=== PATIENT | male | born 1965 | race Caucasian/White ===

== ENCOUNTER 2018-08-11 15:40 | Outpatient (RCR) | payer BC ==
[2018-08-05 11:18] VITALS: BP 143/95
[2018-08-05] MEDS: cefTRIAXone 2 GM/NS 50 ML IVPB IV SCH ×2 (11:43)
[2018-08-06 13:14] VITALS: BP 131/104
[2018-08-06] MEDS: cefTRIAXone 2 GM/NS 50 ML IVPB IV SCH ×2 (13:14)
[2018-08-07 12:50] VITALS: BP 118/92
[2018-08-07] MEDS: cefTRIAXone 2 GM/NS 50 ML IVPB IV SCH ×2 (12:58)
[2018-08-08] MEDS: cefTRIAXone FOR IV USE 1,000 MG in NS (IVPB) 50 ML IV SCH (09:45)
[2018-08-08 10:16] VITALS: BP 124/90
[2018-08-09] MEDS: cefTRIAXone FOR IV USE 1,000 MG in NS (IVPB) 50 ML IV SCH (09:31)
[2018-08-09 09:33] VITALS: BP 125/97
[2018-08-10] MEDS: cefTRIAXone FOR IV USE 1,000 MG in NS (IVPB) 50 ML IV SCH (13:01)
[2018-08-10 13:06] VITALS: BP 117/77
[~2018-08-11] VITALS: Ht 182.9 cm; Wt 92.1 kg
[~2018-08-11 15:40] MED LIST: LISI-552 PO; NS (IVPB) 50 ML ONE; cefTRIAXone 2 GM/20 ML for IV (ROCEPHIN) ONE
[2018-08-11] MEDS: cefTRIAXone FOR IV USE 1,000 MG in NS (IVPB) 50 ML IV SCH (15:50)
[2018-08-11 16:03] LABS: BASOPHILS # (AUTO) 0.1 10^3/uL (0.0-0.1); BASOPHILS % (AUTO) 1 % (0-10); EOSINOPHILS # (AUTO) 0.2 10^3/uL (0.0-0.3); EOSINOPHILS % (AUTO) 3 % (0-10); HEMATOCRIT 38 % (40-54); HEMOGLOBIN 12.8 G/DL (13.3-17.7); LYMPHOCYTES # (AUTO) 3.3 X 10^3 (1.0-4.0); LYMPHOCYTES % (AUTO) 41 % (12-44); MEAN CORPUSCULAR HEMOGLOBIN 29 PG (25-34); MEAN CORPUSCULAR HGB CONC 34 G/DL (32-36); MEAN CORPUSCULAR VOLUME 88 FL (80-99); MEAN PLATELET VOLUME 10.3 FL (7.4-10.4); MONOCYTES % (AUTO) 12 % (0-12); NEUTROPHILS # (AUTO) 3.5 X 10^3 (1.8-7.8); NEUTROPHILS % (AUTO) 43 % (42-75); PLATELET COUNT 279 10^3/uL (130-400); RED BLOOD COUNT 4.36 10^6/uL (4.35-5.85); RED CELL DISTRIBUTION WIDTH 12.9 % (10.0-14.5); WHITE BLOOD COUNT 8.1 10^3/uL (4.3-11.0)
[2018-08-11 16:20] LABS: ALANINE AMINOTRANSFERASE 97 U/L (0-55); ALBUMIN 4.1 GM/DL (3.2-4.5); ALKALINE PHOSPHATASE 52 U/L (40-136); BILIRUBIN,TOTAL 0.3 MG/DL (0.1-1.0); BUN/CREATININE RATIO 10; CARBON DIOXIDE 26 MMOL/L (21-32); CHLORIDE 104 MMOL/L (98-107); CREATININE SERUM 0.93 MG/DL (0.60-1.30); GFR ESTIMATED > 60; GLUCOSE 85 MG/DL (70-105); POTASSIUM 4.2 MMOL/L (3.6-5.0); SODIUM 137 MMOL/L (135-145); TOTAL PROTEIN 6.6 GM/DL (6.4-8.2)
[2018-08-11 16:28] VITALS: BP 120/92
== END 2018-08-11 16:28 | disposition home or self-care (01) ==
LOC: SDC 15:40
PROVIDERS: ATTEND Nurse Practitioner Family
DX: K57.20 Diverticulitis of large intestine with perforation and abscess without bleeding (principal)
CPT/HCPCS: 36415; 76937; 80053; 85025; 96365

== ENCOUNTER 2018-08-18 12:03 | Outpatient (CLI) | payer BC ==
[~2018-08-18] VITALS: Ht 182.9 cm; Wt 92.1 kg
[~2018-08-18 12:03] MED LIST changes: -NS (IVPB) 50 ML ONE; -cefTRIAXone 2 GM/20 ML for IV (ROCEPHIN) ONE
[2018-08-18] MEDS ORDERED: NS IV 1000 ML 1,000 ML IV ONE (12:30)
[2018-08-18 13:46] VITALS: BP 124/89
--- NOTE | 2018-08-18 14:18 | Diagnostic Imaging Report ---
PROCEDURE: CT abdomen and pelvis without contrast. TECHNIQUE: Multiple contiguous axial images were obtained through the abdomen and pelvis without the use of intravenous contrast. INDICATION: Left lower quadrant pain. COMPARISON: There are no prior studies available for comparison. FINDINGS: There are innumerable diverticula involving the sigmoid and distal descending colon. There is slight distortion of the pericolonic fat about the sigmoid colon. This finding could be related to mild scar formation from prior episodes of diverticulitis. The possibility that there is an element of acute diverticulitis present cannot be entirely excluded however. There is no diverticular mass or abscess visualized. There is no sign of a microperforation either. The urinary bladder and prostate gland are grossly unremarkable. The appendix was visualized and is not abnormally thickened. The liver is homogeneous and does not appear to be enlarged. The gallbladder, the spleen, the pancreas, the adrenals, the kidneys, the aorta and the inferior vena cava show no sign of an acute abnormality. There is a 4.1 cm rounded area of low density along the superior pole of the left kidney. There is also a much smaller 1 cm rounded area of low density in the inferior pole and a 2.3 cm rounded area of low density in the midportion of the left kidney. I suspect that these findings are due to cyst formation. Ultrasound would be recommended to confirm this however. The stomach is partially filled with gas and fluid and consequently difficult to assess. The lung bases are clear. The bone windows show no evidence for a fracture or for a destructive lesion. IMPRESSION: 1. There are innumerable diverticula in the sigmoid colon. There is also slight distortion of the pericolonic fat in this area. Whether this finding is secondary to chronic inflammation or to mild acute diverticulitis is not certain. Clinical followup is recommended. 2. There is no diverticular mass, abscess or perforation. There is no other acute abnormality of the abdomen or pelvis identified. 3. The areas of low density associated with the left kidney are most likely cysts. Ultrasound would be recommended to confirm this. Dictated by: Dictated on workstation # [id number]
== END 2018-08-18 13:46 | disposition home or self-care (01) ==
LOC: SDC 12:03
PROVIDERS: ATTEND Nurse Practitioner Family
DX: E86.1 Hypovolemia (principal); R19.7 Diarrhea, unspecified; E86.0 Dehydration; K57.32 Diverticulitis of large intestine without perforation or abscess without bleeding
CPT/HCPCS: 74176; 96360

== ENCOUNTER 2018-08-18 16:15 | Inpatient (IN) | payer BC ==
[~2018-08-18] VITALS: Ht 182.9 cm; Wt 90.7 kg
[2018-08-18 16:10] VITALS: BP 148/97
--- NOTE | 2018-08-18 16:15 | NUR ---
TAQUERIASandra THURMAN admitted to room 422-1, with an admitting diagnosis of SIGMOID DIVERTICULOSIS, on 08/18/[address] STORM'S OFFICE via W/C, accompanied by S/O.TAQUERIA THURMAN introduced to surroundings, call light, bed controls, phone, TV, temperature control, lights, meal times, smoking policy, visitor policy, side rail policy, bathrooms and showers. Patient Rights given to patient in the handbook.TAQUERIA THURMAN verbalizes understanding that [facility] is not responsible for the loss or damage to any personal effects or valuables that are kept in the patients posession during their hospitalization. The following Patient Care Plans were discussed with the PT: Discharge Planning, PAIN CONTROL,IV THERAPY AND ANTIBIOTICS, and TESTS AND PROCEDURES. TAQUERAI THURMAN verbalizes understanding of Interdisciplinary Patient Education. Patient and/or family were informed about the Rapid Response Team and its purpose.
--- NOTE | 2018-08-18 16:47 | HISTORY AND PHYSICAL ---
DATE OF SERVICE: ATTENDING PRIMARY CARE PHYSICIAN: Dr. Montoya. ADMITTING PHYSICIAN: Beau Storm MD HISTORY OF PRESENT ILLNESS: The patient is a 53-year-old male who was recently referred to the office for abdominal pain. This gentleman reports that for the past 3 weeks he has had pain in the left lower abdominal quadrant. He initially presented at [facility] where he underwent a CT scan and found to have a small diverticular abscess as well as diverticulitis. The abscess was approximately 2 cm in size. He was treated with antibiotics. He reports that since that time he has had intermittent episodes of pain; however, in the past 48 hours, he has felt fevers and chills. He also feels weak. Upon examination, he does have pain in the left lower abdominal quadrant. A CT scan was performed today, which did show signs of sigmoid diverticulitis; however, no abscess at this time. He states that he does feel nauseous as well and cannot keep adequate amounts of fluids down. He has also not had a colonoscopy up to this point in his life. He reports that he does have a history of gastroesophageal reflux disease and peptic ulcer disease and these symptoms have worsened in the past several weeks as well. He also reports that he has noticed dark diarrhea. PAST MEDICAL HISTORY: Hypertension, diverticulitis and diverticulosis, insomnia. PAST SURGICAL HISTORY: Right shoulder arthroscopy, left knee arthroscopy. ALLERGIES: No known drug allergies. MEDICATIONS: Lisinopril 20 mg daily. SOCIAL HISTORY: Previous smoker, quit in 1994, 10 pack years. Does drink several beers on the weekends. FAMILY HISTORY: Sister, lung cancer, mother, father, sister, brother, diabetes and hypertension. REVIEW OF SYSTEMS: Well-nourished male in no acute distress. He is not experiencing any shortness of breath or difficulty breathing. No chest pain, palpitations, diaphoresis. No intermittent episodes of nausea, no vomiting. He does not have any appetite. He also has diarrhea, which had been darker in color. No red blood per rectum. He is currently having chills. No recent inadvertent weight loss. All other review of systems negative. PHYSICAL EXAMINATION: VITAL SIGNS: Blood pressure 100/50, current weight 200 pounds at 6 feet 0 inches. CHEST: Clear. Good breath sounds bilaterally. HEART: Regular, no murmurs. EXTREMITIES: No lower extremity edema, negative Homans sign. HEENT: No scleral icterus. NECK: No cervical lymphadenopathy. ABDOMEN: Soft, nontender, nondistended. SKIN: Warm, dry. ASSESSMENT AND PLAN: A 53-year-old male with an acute sigmoid diverticulitis. He is currently dehydrated and feeling chills and cannot keep adequate fluids down and we will admit him for observation. We will start IV fluids, IV antibiotics as well as a clear liquid diet. We will also get followup labs in the morning and clinical examination. He has also not had a colonoscopy at this point in his life and does have worsening episodes of gastroesophageal reflux disease and peptic ulcer disease in the past 4 to 6 week. We will proceed with outpatient EGD and colonoscopy. Job ID: [id number] DocumentID: [id number] Dictated Date: 08/18/2018 16:05:04 Photo Editor Date: 08/18/2018 16:46:45 Dictated By: BEAU STORM MD MTDD
[2018-08-18] MEDS ORDERED: ONDANSETRON 4 MG/2 ML (SDV) Z0FRAN IV PRN (17:00)
[2018-08-18] MEDS: LACTATED RINGERS 1,000 ML IV SCH ×2 (17:00→23:49)
[2018-08-18] MEDS: metroNIDAZOLE 500MG/100ML IVPB 100 ML IV SCH (17:00)
[2018-08-18] MEDS ORDERED: CATHETER FLUSH 10 ML SYR IV PRN (17:00)
[2018-08-18] MEDS ORDERED: fentaNYL INJECTION 100 MCG/2 ML AMP IV PRN (17:00)
[2018-08-18] MEDS ORDERED: HYDROcodone/APAP 7.5 MG/325 MG (LORTAB, LORCET PLUS) TABLET PO PRN (17:00)
[2018-08-18] MEDS: CIPROFLOXACIN IV 400MG/200ML 200 ML IV SCH (17:00)
[2018-08-18] MEDS: PANTOPRAZOLE 40 MG (PROTONIX) VIAL IV SCH (17:01)
[2018-08-18] MEDS: ACETAMINOPHEN 325 MG TABLET PO PRN (17:01)
[2018-08-18] MEDS ORDERED: FLU QUADRIvalent (5+ YOA) 2018-2019 (AFLURIA) 0.5 ML IM ONE (17:15)
[2018-08-18] MEDS: IBUPROFEN 600 MG (MOTRIN) TAB PO PRN (18:38)
[2018-08-18 20:13] VITALS: BP 126/83
[2018-08-19 00:02] VITALS: BP 119/83
[2018-08-19] MEDS: LACTATED RINGERS 1,000 ML IV SCH ×3 (00:55→17:08)
[2018-08-19] MEDS: CIPROFLOXACIN IV 400MG/200ML 200 ML IV SCH (04:26)
[2018-08-19 04:43] LABS: HEMOGLOBIN 11.8 G/DL (13.3-17.7); MEAN PLATELET VOLUME 10.7 FL (7.4-10.4); RED CELL DISTRIBUTION WIDTH 13.3 % (10.0-14.5); WHITE BLOOD COUNT 12.2 10^3/uL (4.3-11.0)
[2018-08-19 04:47] VITALS: BP 112/75
[2018-08-19 05:11] LABS: BUN/CREATININE RATIO 9; CALCIUM 8.6 MG/DL (8.5-10.1); CARBON DIOXIDE 22 MMOL/L (21-32); CHLORIDE 107 MMOL/L (98-107); CREATININE SERUM 0.77 MG/DL (0.60-1.30); GFR ESTIMATED > 60; GLUCOSE 101 MG/DL (70-105); POTASSIUM 3.6 MMOL/L (3.6-5.0); SODIUM 136 MMOL/L (135-145)
[2018-08-19] MEDS: metroNIDAZOLE 500MG/100ML IVPB 100 ML IV SCH (06:50)
[2018-08-19 08:00] VITALS: BP 127/81
[2018-08-19] MEDS: PANTOPRAZOLE 40 MG (PROTONIX) VIAL IV SCH (08:09)
[2018-08-19] MEDS: ACETAMINOPHEN 325 MG TABLET PO PRN ×3 (08:09→20:50)
--- NOTE | 2018-08-19 08:39 | NUR ---
SPOKE WITH THE PATIENT ABOUT HIS MEDICATIONS. HE STATES THE ONLY THING HE IS CURRENTLY TAKING IS HIS BLOOD PRESSURE MEDICATION. THE EXT MED HX SHOWS A FEW SHORT TERM MEDICATIONS HAVING BEEN FILLED RECENTLY, HE STATES THESE ARE ALL COMPLETED. IN ADDITION TO WHAT IS SHOWN ON THE EXT MED HX RAHEEM FILLED LISINOPRIL 20MG DAILY 08-03-18.
--- NOTE | 2018-08-19 13:42 | Consultation-Hospitalist ---
HPI History of Present Illness: HPI/Chief Complaint Pt is a 53yoCM with HTN and recent diagnosis of diverticulitis who was admitted to the surgery service for failed outpatient management of diverticulitis. I am consulted for medical management. He states that his only chronic medical problem is his HTN. He was diagnosed with diverticulitis 3 weeks ago at outside hospital and was treated with oral abx. He saw his PCP who arranged for daily IV abx as an outpatient as well. He completed this course roughly 1 week ago and did well until a few days ago when he developed fevers and chills. He is also having profuse diarrhea. He was direct admitted. Source: patient Exam Limitations: no limitations Date Seen 08/19/18 Attending Physician Kari Cook MD PCP Kip Montoya MD Referring Physician Date of Admission Aug 18, 2018 at 16:28 Home Medications & Allergies Home Medications Reviewed patient Home Medication Reconciliation performed by pharmacy medication reconciliations on call pharmacy technician and/or nursing. Patients Allergies have been reviewed. Allergies Allergies Coded Allergies No Known Drug Allergies (Unverified08/05/18) Past Pwglmit-Tukhao-Btgdds Hx Past Med/Social Hx: Reviewed Nursing Past Med/Soc Hx Patient Social History Marrital Status: Employed/Student: employed Alcohol Use: Regular Use Alcohol Beverage of Choice: Beer Recreational Drug Use: No Physical Abuse Screen: No Sexual Abuse: No Recent Foreign Travel: No Contact w/other who traveled: No Recent Infectious Disease Expo: No Seasonal Allergies Seasonal Allergies: No Past Medical History Cardiac: Hypertension Gastrointestinal: Gastroesophageal Reflux, Chronic Diarrhea Musculoskeletal: Chronic Back Pain History of Blood Disorders: No Family History Reviewed Nursing Family Hx Cardiovascular disease Diabetes mellitus 19 FATHER 19 MOTHER G8 BROTHER G8 SISTER Hypertension 19 FATHER 19 MOTHER Review of Systems Constitutional: chills, fever Gastrointestinal: see HPI, diarrhea All Other Systems Reviewed Negative Unless Noted: Yes (Negative excepted noted.) Physical Exam Physical Exam Vital Signs Vital Signs - First Documented 08/18/18 16:10 Temp 100.0 Pulse 107 Resp 22 B/P (MAP) 148/97 (114) Pulse Ox 98 O2 Delivery Room Air Capillary Refill : Height, Weight, BMI Height: 6'0.00" Weight: 200lbs. 0.0oz. [id number]; 27.1 BMI Method: General Appearance: No Apparent Distress, WD/WN HEENT: PERRL/EOMI, Moist Mucous Membranes Neck: Non Tender, Supple Respiratory: Lungs Clear, No Respiratory Distress Cardiovascular: Regular Rate, Rhythm, No Murmur Gastrointestinal: Normal Bowel Sounds, Non Tender, Soft Extremity: Normal Capillary Refill, No Calf Tenderness Neurologic/Psychiatric: Alert, Oriented x3, Normal Mood/Affect Skin: Normal Color, Warm/Dry Results Results/Procedures Labs Laboratory Tests 08/19/18 04:30 Patient resulted labs reviewed. Imaging: Reviewed Imaging Report Assessment/Plan Assessment and Plan Assess & Plan/Chief Complaint Diverticulitis Diagnosis/Problems Diagnosis/Problems (1) Diverticulitis Status: Acute Assessment & Plan: Continue current abx Management per surgery Will check c diff given diarrhea (2) HTN (hypertension) Status: Chronic Assessment & Plan: Well controlled Trend Qualifiers: Hypertension type: essential hypertension Qualified Codes: I10 - Essential (primary) hypertension Clinical Quality Measures DVT/VTE Risk/Contraindication: Risk Factor Score Per Nursin RFS Level Per Nursing on Admit: 1=Low/No VTE PPX MARIAN HOLLAND MD Aug 19, 2018 13:42
--- NOTE | 2018-08-19 14:02 | Progress Note (SOAP) ---
Subjective Date Seen by a Provider: Aug 19, 2018 Time Seen by a Provider: 14:00 Subjective/Events-last exam doing better today. still has fever/chills however improved with ibuprofen. minimal abd pain. tolerating clears. wbc 12 Objective Exam Vital Signs Date Time Temp Pulse Resp B/P (MAP) Pulse Ox O2 Delivery O2 Flow Rate FiO2 08/19/18 09:00 98 Room Air 08/19/18 08:00 101.7 86 20 127/81 (96) 96 Room Air 08/19/18 04:47 99.2 97 18 112/75 (87) 93 Room Air 08/19/18 00:02 99.3 87 20 119/83 (95) 98 Room Air 08/18/18 21:00 Room Air 08/18/18 20:13 100.7 99 18 126/83 (97) 95 Room Air 08/18/18 17:38 Room Air 08/18/18 17:01 100.0 08/18/18 16:10 100.0 107 22 148/97 (114) 98 Room Air I & O 08/19/18 07:00 Intake Total 1590 ml Output Total 2800 ml Balance -1210 ml Capillary Refill : General Appearance: No Apparent Distress HEENT: PERRL/EOMI Neck: Full Range of Motion Respiratory: Chest Non Tender, Lungs Clear, Normal Breath Sounds Cardiovascular: Regular Rate, Rhythm Gastrointestinal: normal bowel sounds, soft, tenderness Extremity: Normal Capillary Refill Neurologic/Psychiatric: Alert, Oriented x3 Skin: Normal Color Lymphatic: No Adenopathy Results Lab Laboratory Tests 08/19/18 04:30: White Blood Count 12.2H, Red Blood Count 3.95L, Hemoglobin 11.8L, Hematocrit 35L , Mean Corpuscular Volume 88, Mean Corpuscular Hemoglobin 30, Mean Corpuscular Hemoglobin Concent 34, Red Cell Distribution Width 13.3, Platelet Count 228, Mean Platelet Volume 10.7H, Sodium Level 136, Potassium Level 3.6, Chloride Level 107, Carbon Dioxide Level 22, Anion Gap 7, Blood Urea Nitrogen 7, Creatinine 0.77, Estimat Glomerular Filtration Rate > 60, BUN/Creatinine Ratio 9 , Glucose Level 101, Calcium Level 8.6 Assessment/Plan Assessment/Plan Assess & Plan/Chief Complaint sigmoid diverticulitis. no abscess on recent CT and slightly improved since last CT earlier this month. still fever but improved. will advance to dys3 diet. Clinical Quality Measures DVT/VTE Risk/Contraindication: Risk Factor Score Per Nursin RFS Level Per Nursing on Admit: 1=Low/No VTE PPX BEAU STORM MD Aug 19, 2018 14:02
--- NOTE | 2018-08-19 14:22 | NUR ---
DR STORM HERE, ORDERED TO ADVANCE DIET, INSTRUCTED TO WALK IN HALLS, CONTINUE TO HAVE DIARRHEA, INSTRUCTED ON NEED FOR STOOL SPECIMEN FOR C DIFF, VOIDING CLEAR YELLOW URINE, GOOD ORAL INTACT, NO C/O ABD PAIN
[2018-08-19 15:57] VITALS: BP 127/79
--- NOTE | 2018-08-19 16:00 | NUR ---
DR HOLLAND NOTIFIED OF POSITIVE C DIFF
--- NOTE | 2018-08-19 16:05 | NUR ---
contact isolation started
[2018-08-19] MEDS ORDERED: VANCOMYCIN ORAL SUSPENSION 60 ML BOTTLE PO SCH (16:15)
[2018-08-19] MEDS: LACTOBACILLUS ACIDOPHILUS (PROBIOTIC) CAPSULE PO SCH (17:09)
[2018-08-19] MEDS: VANCOMYCIN ORAL 250 MG/5 ML 120 ML PO SCH ×4 (18:01→23:39)
[2018-08-19] MEDS: IBUPROFEN 600 MG (MOTRIN) TAB PO PRN (18:05)
[2018-08-19 20:40] VITALS: BP 125/71
[2018-08-20] VITALS: BP 117/77
[2018-08-20] MEDS: LACTATED RINGERS 1,000 ML IV SCH ×4 (00:13→19:51)
[2018-08-20 04:00] VITALS: BP 124/84
[2018-08-20] MEDS: LACTOBACILLUS ACIDOPHILUS (PROBIOTIC) CAPSULE PO SCH ×3 (06:10→17:23)
[2018-08-20] MEDS: VANCOMYCIN ORAL 250 MG/5 ML 120 ML PO SCH ×8 (06:12→23:06)
[2018-08-20] MEDS: PANTOPRAZOLE 40 MG (PROTONIX) VIAL IV SCH (07:56)
[2018-08-20 08:00] VITALS: BP 136/91
[2018-08-20 08:06] LABS: HEMOGLOBIN 11.6 G/DL (13.3-17.7); MEAN PLATELET VOLUME 11.3 FL (7.4-10.4); RED CELL DISTRIBUTION WIDTH 13.2 % (10.0-14.5); WHITE BLOOD COUNT 6.9 10^3/uL (4.3-11.0)
[2018-08-20 08:28] LABS: BUN/CREATININE RATIO 4; CALCIUM 8.6 MG/DL (8.5-10.1); CARBON DIOXIDE 24 MMOL/L (21-32); CHLORIDE 110 MMOL/L (98-107); CREATININE SERUM 0.73 MG/DL (0.60-1.30); GFR ESTIMATED > 60; GLUCOSE 100 MG/DL (70-105); POTASSIUM 3.5 MMOL/L (3.6-5.0); SODIUM 139 MMOL/L (135-145)
[2018-08-20 17:04] VITALS: BP 138/97
[2018-08-20] MEDS ORDERED: HYDR-34 PO (17:59)
[2018-08-20] MEDS ORDERED: VANC125S PO (17:59)
--- NOTE | 2018-08-20 18:00 | Discharge Inst-Surgical ---
D/C Lap Instructions-KIDO New, Converted, or Re-Newed RX: RX on Chart Follow Up Appt in 2 weeks Activity as tolerated Low residue diet next two weeks. Avoid Alcohol, Caffeine, Spicy [place] and Acid foods. Drink 64 fluid oz or more of fluids per day. Symptoms to Report: Fever over 101 degree F, Nausea/Vomiting If any problems/questions: Contact your physician or go to Emergency Room BEAU STORM MD Aug 20, 2018 18:00
--- NOTE | 2018-08-20 18:08 | Progress Note (SOAP) ---
Subjective Date Seen by a Provider: Aug 20, 2018 Time Seen by a Provider: 18:00 Subjective/Events-last exam doing much better. still having diarrhea. fever/chills much less. minimal abd pain/cramping. WBC normal. Objective Exam Vital Signs Date Time Temp Pulse Resp B/P (MAP) Pulse Ox O2 Delivery O2 Flow Rate FiO2 08/20/18 17:04 98.2 79 16 138/97 (111) 98 Room Air 08/20/18 08:00 97.3 82 20 136/91 (106) 97 Room Air 08/20/18 04:00 98.4 80 18 124/84 (97) 97 Room Air 08/20/18 00:00 97.7 70 19 117/77 (90) 98 Room Air 08/19/18 21:00 Room Air 08/19/18 20:40 99.7 98 19 125/71 (89) 94 Room Air 08/19/18 19:44 100.0 I & O 08/20/18 07:00 Intake Total 6188 ml Output Total 5000 ml Balance 1188 ml Capillary Refill : General Appearance: No Apparent Distress HEENT: PERRL/EOMI Neck: Full Range of Motion Respiratory: Chest Non Tender, Lungs Clear Cardiovascular: Regular Rate, Rhythm Gastrointestinal: normal bowel sounds, non tender, soft Extremity: Normal Capillary Refill Neurologic/Psychiatric: Alert, Oriented x3 Skin: Normal Color Lymphatic: No Adenopathy Results Lab Laboratory Tests 08/20/18 07:35: White Blood Count 6.9, Red Blood Count 4.04L, Hemoglobin 11.6L, Hematocrit 36L, Mean Corpuscular Volume 89, Mean Corpuscular Hemoglobin 29, Mean Corpuscular Hemoglobin Concent 32, Red Cell Distribution Width 13.2, Platelet Count 208, Mean Platelet Volume 11.3H, Sodium Level 139, Potassium Level 3.5L, Chloride Level 110H, Carbon Dioxide Level 24, Anion Gap 5, Blood Urea Nitrogen 3L, Creatinine 0.73, Estimat Glomerular Filtration Rate > 60, BUN/Creatinine Ratio 4 , Glucose Level 100, Calcium Level 8.6 Microbiology 08/19/18 C. difficile [facility] Antigen & Toxins - Final, Complete Assessment/Plan Assessment/Plan Assess & Plan/Chief Complaint sigmoid diverticulitis. no abscess on recent CT and slightly improved since last CT earlier this month. positive for C. diff. on vanco PO and improving. WBC normal at 7. will advance to reg diet. home soon. Clinical Quality Measures DVT/VTE Risk/Contraindication: Risk Factor Score Per Nursin RFS Level Per Nursing on Admit: 1=Low/No VTE PPX BEAU STORM MD Aug 20, 2018 18:08
[2018-08-20] MEDS ORDERED: lisINopril 20 MG (PRINIVIL) TABLET PO SCH (21:00)
[2018-08-21 00:52] VITALS: BP 120/73
[2018-08-21] MEDS: LACTATED RINGERS 1,000 ML IV SCH (02:34)
[2018-08-21] MEDS: VANCOMYCIN ORAL 250 MG/5 ML 120 ML PO SCH ×2 (06:34)
[2018-08-21] MEDS: LACTOBACILLUS ACIDOPHILUS (PROBIOTIC) CAPSULE PO SCH (06:34)
[2018-08-21 08:00] VITALS: BP 138/98
[2018-08-21 08:47] VITALS: BP 136/70
--- NOTE | 2018-08-21 08:51 | NUR ---
TAQUERIA THURMAN demonstrates understanding of discharge instructions and accurately returns instructions upon questioning. Copy of Post-Discharge Instructions and Medication Discharge Instructions given to patient. TAQUERIA THURMAN is able to manage continuing needs after discharge. Patients belongings returned to patient. Skin dry and intact; no breakdown noted. Patient discharged from [facility]- on 08/21/2018 at 0830. TAQUERIA THURMAN left floor via ambulation, accompanied by this RN to private automobile.
[2018-08-21] MEDS ORDERED: PANTOPRAZOLE 40 MG (PROTONIX) TAB PO SCH (09:00)
== END 2018-08-21 08:30 | disposition home or self-care (01) | DRG 392 ==
LOC: 4TH 16:15 → UNDOADMOB 16:28 → 4TH 16:28 → INTOOBSV 08-19 15:47 → OBSVTOIN 08-19 15:47 → UNDODISIN 08-21 08:30
PROVIDERS: ADMIT Surgery; ATTEND Surgery
DX: K57.32 Diverticulitis of large intestine without perforation or abscess without bleeding (principal); A04.72 Enterocolitis due to Clostridium difficile, not specified as recurrent; I10 Essential (primary) hypertension; K21.9 Gastro-esophageal reflux disease without esophagitis; Z87.891 Personal history of nicotine dependence; Z80.1 Family history of malignant neoplasm of trachea, bronchus and lung; Z87.11 Personal history of peptic ulcer disease
CPT/HCPCS: 36415; 74176; 80048; 85027; 87324; 87449; 96360; 99211; G0378

== ENCOUNTER 2018-09-28 05:40 | Outpatient (CLI) | payer BC ==
[~2018-09-28] VITALS: Ht 182.9 cm; Wt 90.7 kg
[~2018-09-28 05:40] MED LIST changes: +HYDR-34 PO; +VANC125S PO
== END 2018-09-28 13:26 | disposition home or self-care (01) ==
LOC: PREOP 05:40
PROVIDERS: ATTEND Surgery
DX: Z01.818 Encounter for other preprocedural examination (principal)

== ENCOUNTER 2018-09-29 16:50 | Inpatient (IN) | payer BC ==
[~2018-09-29] VITALS: Ht 182.9 cm; Wt 88.1 kg
[2018-09-29] MEDS ORDERED: ONDANSETRON 4 MG/2 ML (SDV) Z0FRAN IV PRN (17:15)
[2018-09-29] MEDS ORDERED: morphine INJ 10 MG/ML 1ML (SYR OR VIAL) IV PRN (17:15)
[2018-09-29] MEDS: NS IV 1000 ML 1,000 ML IV SCH (17:43)
[2018-09-29 17:49] LABS: BASOPHILS # (AUTO) 0.1 10^3/uL (0.0-0.1); BASOPHILS % (AUTO) 1 % (0-10); EOSINOPHILS # (AUTO) 0.3 10^3/uL (0.0-0.3); EOSINOPHILS % (AUTO) 5 % (0-10); HEMATOCRIT 38 % (40-54); HEMOGLOBIN 12.5 G/DL (13.3-17.7); LYMPHOCYTES # (AUTO) 1.7 X 10^3 (1.0-4.0); LYMPHOCYTES % (AUTO) 25 % (12-44); MEAN CORPUSCULAR HEMOGLOBIN 29 PG (25-34); MEAN CORPUSCULAR HGB CONC 33 G/DL (32-36); MEAN CORPUSCULAR VOLUME 86 FL (80-99); MEAN PLATELET VOLUME 10.5 FL (7.4-10.4); MONOCYTES # (AUTO) 0.9 X 10^3 (0.0-1.0); MONOCYTES % (AUTO) 13 % (0-12); NEUTROPHILS # (AUTO) 3.8 X 10^3 (1.8-7.8); NEUTROPHILS % (AUTO) 56 % (42-75); PLATELET COUNT 269 10^3/uL (130-400); RED CELL DISTRIBUTION WIDTH 13.2 % (10.0-14.5); WHITE BLOOD COUNT 6.8 10^3/uL (4.3-11.0)
[2018-09-29 17:58] LABS: BAND NEUTROPHILS 1 %; BASOPHILS % (MANUAL) 0 %; EOSINOPHILS % (MANUAL) 11 %; LYMPHOCYTES % (MANUAL) 28 %; MONOCYTES % (MANUAL) 4 %; NEUTROPHILS % (MANUAL) 56 %; RBC MORPH NORMAL
[2018-09-29] MEDS ORDERED: IOHEXOL 350 MG/ML 100 ML (OMNIPAQUE 350) VIAL IV ONE (18:00)
[2018-09-29] MEDS ORDERED: HOLD METFORMIN - RECEIVED CONTRAST 20 ML VIAL IV SCH (18:00)
[2018-09-29] MEDS ORDERED: NS 100 ML (IVPB) BAG IV ONE (18:00)
[2018-09-29 18:04] LABS: ALANINE AMINOTRANSFERASE 40 U/L (0-55); ALBUMIN 4.1 GM/DL (3.2-4.5); ALKALINE PHOSPHATASE 54 U/L (40-136); BILIRUBIN,TOTAL 0.3 MG/DL (0.1-1.0); BUN/CREATININE RATIO 12; CALCIUM 9.4 MG/DL (8.5-10.1); CARBON DIOXIDE 27 MMOL/L (21-32); CHLORIDE 106 MMOL/L (98-107); CREATININE SERUM 0.89 MG/DL (0.60-1.30); GFR ESTIMATED > 60; GLUCOSE 93 MG/DL (70-105); POTASSIUM 4.1 MMOL/L (3.6-5.0); SODIUM 141 MMOL/L (135-145); TOTAL PROTEIN 6.6 GM/DL (6.4-8.2)
[2018-09-29] MEDS ORDERED: FLU QUADRIvalent (5+ YOA) 2018-2019 (AFLURIA) 0.5 ML IM ONE (19:30)
--- NOTE | 2018-09-29 19:41 | Diagnostic Imaging Report ---
EXAMINATION: CT abdomen and pelvis with contrast dated 09/29/2018. TECHNIQUE: Multiple contiguous axial images were obtained through the abdomen and pelvis after administration of intravenous contrast. INDICATION: Groin pain, severe diarrhea for two days, and history of diverticulitis. COMPARISON: 08/18/2018. FINDINGS: There is diffuse diverticular disease throughout the descending colon and sigmoid. In the region of the mid sigmoid colon, there is mild wall thickening and adjacent very mild fat stranding suggesting early findings of diverticulitis. No free air or abscess seen at this time. An underlying mass given the wall thickening is difficult to exclude and follow-up recommended to assure resolution. If this persists, colonoscopy could better characterize the region once the inflammation has resolved. Appendix is unremarkable in appearance. No surrounding inflammatory process is appreciated. The liver is grossly unremarkable. Spleen is normal. Gallbladder is distended but without surrounding inflammation. Adrenal glands and pancreas are unremarkable. Within the kidneys, tiny cystic changes too small to characterize noted bilaterally. Several larger cystic changes along the left anterior kidney likely simple cysts. The osseous structures demonstrate no acute abnormality. Visualized lung bases demonstrate a small subpleural nodule within the right middle lobe laterally, image 5. This could be followed as clinically indicated to assure stability. IMPRESSION: 1. Findings of likely early diverticulitis of the sigmoid colon as described, please see the above description and recommendations. 2. Other incidental findings as noted above including a tiny nodule in the right lung. Dictated by: Dictated on workstation # [id number]
[2018-09-29] MEDS: VANCOMYCIN ORAL 250 MG/5 ML 120 ML PO SCH ×4 (19:42→23:43)
[2018-09-29 20:00] VITALS: BP 120/85
[2018-09-30 00:42] VITALS: BP 120/71
[2018-09-30] MEDS: NS IV 1000 ML 1,000 ML IV SCH ×3 (02:45→22:45)
[2018-09-30 04:07] VITALS: BP 124/79
[2018-09-30 04:23] LABS: HEMOGLOBIN 11.8 G/DL (13.3-17.7); MEAN PLATELET VOLUME 10.7 FL (7.4-10.4); RED CELL DISTRIBUTION WIDTH 13.1 % (10.0-14.5); WHITE BLOOD COUNT 5.8 10^3/uL (4.3-11.0)
[2018-09-30 04:41] LABS: ALANINE AMINOTRANSFERASE 32 U/L (0-55); ALBUMIN 3.6 GM/DL (3.2-4.5); ALKALINE PHOSPHATASE 46 U/L (40-136); BILIRUBIN,TOTAL 0.5 MG/DL (0.1-1.0); BUN/CREATININE RATIO 11; CALCIUM 8.7 MG/DL (8.5-10.1); CARBON DIOXIDE 23 MMOL/L (21-32); CHLORIDE 107 MMOL/L (98-107); CREATININE SERUM 0.79 MG/DL (0.60-1.30); GFR ESTIMATED > 60; GLUCOSE 95 MG/DL (70-105); POTASSIUM 3.9 MMOL/L (3.6-5.0); SODIUM 140 MMOL/L (135-145); TOTAL PROTEIN 5.8 GM/DL (6.4-8.2)
[2018-09-30] MEDS: VANCOMYCIN ORAL 250 MG/5 ML 120 ML PO SCH ×6 (06:10→17:50)
--- NOTE | 2018-09-30 07:24 | HISTORY AND PHYSICAL ---
DATE OF SERVICE: ATTENDING PHYSICIAN: Kip Montoya MD ADMITTING PHYSICIAN: Kari Cook MD HISTORY OF PRESENT ILLNESS: The patient is a 53-year-old male, who is unknown to us. He was initially seen in 08/2018 for abdominal pain. He reported this has been occurring for approximately the last three weeks. It is mainly in the left lower abdominal quadrant. He did present to [facility] where he did undergo a CT where he was found to have a small diverticular abscess with diverticulitis. The abscess was approximately 2 cm in size. He was sent home and treated with antibiotics; however, continued to have intermittent episodes of pain as well as the episodes of fever and chills. Upon examination, he did have pain in the left lower abdominal quadrant and did have a repeat CT scan, which did show signs of diverticulitis; however, no abscess at that time. He was having episodes of nausea and was not able to keep adequate amounts of fluids down and was admitted and treated with IV fluids, IV antibiotics as well as clear liquid diet and was also found to have C. difficile. He did eventually improve and was discharged home. He was then seen for a 2-week followup and reports the diarrhea was improving; however, was still having some episodes as well as the abdominal pressure and three to four bowel movements daily. He was doing well at that time. He did present three days later with recurrence of abdominal pain as well as worsening diarrhea and left lower quadrant abdominal pain that was crampy to sharp in nature as well as sweats and chills. He was started on another round of vancomycin for C. difficile and again this did improve over time and was scheduled to undergo an EGD as well as a colonoscopy. He was seen today with Dr. Cook with complaints of multiple episodes of watery diarrhea that started approximately three days ago and reports that he was having sweats and chills that started yesterday. He also reports left lower quadrant to mid abdominal pain that he reports right now is mainly a dull ache in nature. He reports that he was having some episodes of blood in his stool yesterday. He denies any nausea or vomiting as well as no heartburn or reflux. PAST MEDICAL HISTORY: Hypertension, diverticulitis, diverticulosis, insomnia, gastroesophageal reflux disease. PAST SURGICAL HISTORY: Right shoulder arthroscopy, left knee arthroscopy. ALLERGIES: No known drug allergies. MEDICATIONS: Lisinopril 20 mg daily. SOCIAL HISTORY: Previous for smoke, quit in 1994, 10-pack years. Social alcohol. FAMILY HISTORY: Sister with lung cancer. Mother, father, sister, brother with diabetes and hypertension. REVIEW OF SYSTEMS: Well-nourished male, in no acute distress. He is not experiencing any shortness of breath or difficulty breathing. No chest pain, palpitations or diaphoresis. No nausea or vomiting. He does report left lower quadrant to mid lower abdominal pain. He does report multiple episodes of watery diarrhea daily. He did report an episode of bright red blood per rectum yesterday, but no dark tarry stools. He does report episodes of sweats and chills. No recent inadvertent weight loss. All other review of systems is negative. PHYSICAL EXAMINATION: VITAL SIGNS: Blood pressure 130/70. Current weight is 197 pounds, 6 feet 0 inches. CHEST: Clear. Good breath sounds bilaterally. HEART: Regular, no murmurs. EXTREMITIES: No lower extremity edema. Negative Homans sign. HEENT: No scleral icterus. HEAD: Normocephalic. NECK: No cervical lymphadenopathy. ABDOMEN: Soft, nondistended. There is some mild tenderness with deep palpation in the left lower quadrant to lower mid abdominal region. No palpable masses. No organomegaly. SKIN: Warm, dry and pink. NEUROLOGIC: Awake, alert, oriented x3. ASSESSMENT AND PLAN: A 53-year-old male with a recurrent episode of acute sigmoid diverticulitis. He is having multiple episodes of diarrhea as well as complaining of the left lower quadrant abdominal pain to mid lower abdominal pain and also has hypertension. At this time, we will admit him for IV fluids due to dehydration and have him proceed with a low fat diet as well as start IV fluids, pain and nausea medication as well as restart vancomycin for possible C. difficile. We will also proceed with stool cultures as well as C. difficile. We will also obtain a CBC and a CMP as well as a repeat CT of the abdomen and pelvis. It was also discussed with the patient about the possibility of a gallbladder etiology causing his diarrhea and we will also proceed with a gallbladder ultrasound and if it is negative, we will proceed with a HIDA scan. We will also at this time plan on proceeding with a colonoscopy in approximately 3 days to rule out any other etiologies as well as any potential malignancies. The patient verbalized understanding of my instructions and agrees to this plan. At this time, we will admit the patient. Job ID: [id number] DocumentID: [id number] Dictated Date: 09/29/2018 17:01:25 Geek Squad Agent Date: 09/29/2018 19:07:33 Dictated By: TIFFANI ROLLINS
[2018-09-30 08:00] VITALS: BP 127/88
--- NOTE | 2018-09-30 08:05 | NUR ---
LAB REPORTS STOOL C DIF +. DR. STORM NOTIFIED. ISOLATION INITIATED.
[2018-09-30] MEDS ORDERED: METR-145 PO (08:41)
[2018-09-30] MEDS ORDERED: CIPR500T4 PO (08:41)
[2018-09-30] MEDS ORDERED: CATHETER FLUSH 10 ML SYR IV PRN (09:30)
--- NOTE | 2018-09-30 09:51 | Diagnostic Imaging Report ---
PROCEDURE: US Gallbladder. TECHNIQUE: Multiple real-time grayscale images were obtained over the right upper quadrant in various projections. INDICATION: Left lower quadrant abdominal pain. Liver 17 cm in size. There is some generalized increased echogenicity consistent with hepatic steatosis. No discrete liver mass is identified. The portal vein is patent and shows normal direction of flow. The gallbladder contains a small polyp. No stones or sludge are identified. No wall thickening or biliary duct dilatation is seen. Visualized pancreas is unremarkable. Right kidney is unremarkable. There is no ascites. IMPRESSION: 1. Mild hepatic steatosis. 2. No evidence of cholelithiasis or acute cholecystitis. Dictated by: Dictated on workstation # [id number]
[2018-09-30] MEDS ORDERED: HYDROcodone/APAP 7.5 MG/325 MG (LORTAB, LORCET PLUS) TABLET PO ONE (11:44)
--- NOTE | 2018-09-30 11:44 | Diagnostic Imaging Report ---
INDICATION: Abdominal pain. TECHNIQUE: Patient was administered 5 mCi technetium 99m Choletec intravenously and imaging over the abdomen was performed. Next, patient ingested 8 ounces of Ensure and the gallbladder ejection fraction was calculated. FINDINGS: There is homogeneous uptake of activity by the liver. Prompt excretion of activity into the common duct and gallbladder is noted. There is normal passage of activity into the small bowel. Gallbladder ejection fraction is 43%, within normal limits. IMPRESSION: Normal HIDA scan and gallbladder ejection fraction. Dictated by: Dictated on workstation # [id number]
[2018-09-30] MEDS: lisINopril 20 MG (PRINIVIL) TABLET PO SCH (11:48)
[2018-09-30] MEDS: HYDROcodone/APAP 7.5 MG/325 MG (LORTAB, LORCET PLUS) TABLET PO PRN (11:49)
--- NOTE | 2018-09-30 11:55 | NUR ---
GB US AND HIDA SCAN DONE. C/O BACKPAIN. REFUSED MORPHINE. LORTAB 7.5MG PO AFTER DR. STORM CALLED AND NEW ORDER REC'D.
[2018-09-30 12:00] VITALS: BP 134/90
--- NOTE | 2018-09-30 13:07 | NUR ---
SPOKE WITH THE PATIENT ABOUT HIS MEDICATIONS. HE VERIFIED HE WAS TAKING TWO ANTIBIOTICS PRIOR TO ADMISSION, I UPDATED THE MED REC WITH THE ONES SHOWN ON THE EXT MED HX. IN ADDITION TO WHAT IS SHOWN ON THE EXT MED HX [facility] FILLED LISINOPRIL 20MG #90 08-03-18 - HE STATES HE TAKES THIS AT BEDTIME. HE DOES NOT TAKE ANYTHING OTC.
[2018-09-30 16:55] VITALS: BP 118/80
--- NOTE | 2018-09-30 18:01 | Progress Note (SOAP) ---
Subjective Date Seen by a Provider: Sep 30, 2018 Time Seen by a Provider: 17:45 Subjective/Events-last exam doing slightly better today. less diarrhea. started on diet with he is tolerating. minimal abd pain. c. diff postitive for second time. Objective Exam Vital Signs Date Time Temp Pulse Resp B/P (MAP) Pulse Ox O2 Delivery O2 Flow Rate FiO2 09/30/18 16:55 98.4 68 18 118/80 (93) 96 Room Air 09/30/18 12:00 98.0 84 18 134/90 (105) 94 Room Air 09/30/18 08:00 Room Air 09/30/18 08:00 98.6 70 16 127/88 (101) 94 Room Air 09/30/18 04:07 99.0 75 20 124/79 (94) 96 Room Air 09/30/18 00:42 98.6 67 20 120/71 (87) 94 Room Air 09/29/18 20:00 98.4 82 18 120/85 (97) 97 Room Air 09/29/18 19:50 Room Air 09/29/18 18:11 Room Air I & O 09/30/18 07:00 Intake Total 34898 ml Output Total 2500 ml Balance 8790 ml Capillary Refill : Less Than 3 Seconds General Appearance: No Apparent Distress HEENT: PERRL/EOMI Neck: Full Range of Motion Respiratory: Chest Non Tender, Lungs Clear Cardiovascular: Regular Rate, Rhythm Gastrointestinal: normal bowel sounds, soft, tenderness Extremity: Normal Capillary Refill Neurologic/Psychiatric: Alert, Oriented x3 Skin: Normal Color Lymphatic: No Adenopathy Results Lab Laboratory Tests 09/30/18 03:55: White Blood Count 5.8, Red Blood Count 4.09L, Hemoglobin 11.8L, Hematocrit 35L, Mean Corpuscular Volume 86, Mean Corpuscular Hemoglobin 29, Mean Corpuscular Hemoglobin Concent 34, Red Cell Distribution Width 13.1, Platelet Count 246, Mean Platelet Volume 10.7H, Sodium Level 140, Potassium Level 3.9, Chloride Level 107, Carbon Dioxide Level 23, Anion Gap 10, Blood Urea Nitrogen 9, Creatinine 0.79, Estimat Glomerular Filtration Rate > 60, BUN/Creatinine Ratio 11, Glucose Level 95, Calcium Level 8.7, Corrected Calcium 9.0, Total Bilirubin 0.5, Aspartate Amino Transf (AST/SGOT) 20, Alanine Aminotransferase (ALT/SGPT) 32, Alkaline Phosphatase 46, Total Protein 5.8L, Albumin 3.6 Microbiology 09/29/18 C. 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 will plan for colonoscopic fecal transplant on friday. Clinical Quality Measures DVT/VTE Risk/Contraindication: Risk Factor Score Per Nursin RFS Level Per Nursing on Admit: 2=Moderate BEAU STORM MD Sep 30, 2018 18:01
[2018-09-30 20:59] VITALS: BP 124/81
[2018-10-01] VITALS: BP 130/78
[2018-10-01] MEDS: VANCOMYCIN ORAL 250 MG/5 ML 120 ML PO SCH ×6 (00:08→11:31)
[2018-10-01] MEDS: HYDROcodone/APAP 7.5 MG/325 MG (LORTAB, LORCET PLUS) TABLET PO PRN ×3 (00:11→18:29)
[2018-10-01 08:00] VITALS: BP 106/67
[2018-10-01] MEDS: NS IV 1000 ML 1,000 ML IV SCH ×2 (08:28→18:29)
[2018-10-01] MEDS: lisINopril 20 MG (PRINIVIL) TABLET PO SCH (08:28)
--- NOTE | 2018-10-01 11:30 | NUR ---
LORTAB 7.5MG PO FOR ABD PAIN.
[2018-10-01 12:00] VITALS: BP 125/99
[2018-10-01] MEDS ORDERED: POLYETHYLENE GLYCOL 17 GM (MIRALAX) PACK PO ONE ×2 (14:00→22:30)
--- NOTE | 2018-10-01 15:16 | NUR ---
CONSENT SIGNED AND WITNESS AND ADD ON FAXED TO SURGERY.
[2018-10-01 15:44] VITALS: BP 119/88
--- NOTE | 2018-10-01 17:14 | Progress Note (SOAP) ---
Subjective Date Seen by a Provider: Oct 01, 2018 Time Seen by a Provider: 17:00 Subjective/Events-last exam Patient reports doing well. Abdominal discomfort is much improved. Tolerating clear liquid diet. Ambulating. Has started prep for colonoscopy tomorrow and having BMs. No N/V. No fever/chills. Objective Exam Vital Signs Date Time Temp Pulse Resp B/P (MAP) Pulse Ox O2 Delivery O2 Flow Rate FiO2 10/01/18 15:44 97.3 72 18 119/88 (98) 96 Room Air 10/01/18 12:00 98.2 68 16 125/99 (108) 97 Room Air 10/01/18 08:34 Room Air 10/01/18 08:00 98.2 70 20 106/67 (80) 95 Room Air 10/01/18 00:00 99.3 77 18 130/78 (95) 95 Room Air 09/30/18 20:59 99.2 69 18 124/81 (95) 96 Room Air 09/30/18 20:00 Room Air I & O 10/01/18 06:59 Intake Total 3320 ml Output Total 4100 ml Balance -780 ml Capillary Refill : Less Than 3 Seconds General Appearance: No Apparent Distress, WD/WN Neck: Full Range of Motion, Normal Inspection, Non Tender, Supple Respiratory: Lungs Clear, Normal Breath Sounds, No Accessory Muscle Use, No Respiratory Distress Cardiovascular: Regular Rate, Rhythm, No Edema Gastrointestinal: normal bowel sounds, non tender, soft Extremity: Normal Capillary Refill, Normal Inspection, Normal Range of Motion Neurologic/Psychiatric: Alert, Oriented x3 Skin: Normal Color, Warm/Dry Results Lab Microbiology 09/29/18 C. difficile GDH Antigen & Toxins - Final, Resulted 09/29/18 Stool Culture - Preliminary, Resulted Culture In Progress Assessment/Plan Assessment/Plan Assess & Plan/Chief Complaint A 53 year old male with recurrent and resistant c. diff colitis. Will continue with colonic prep. Will DC abx and scheduled for colonoscopy with fecal transplant tomorrow. Clinical Quality Measures DVT/VTE Risk/Contraindication: Risk Factor Score Per Nursin RFS Level Per Nursing on Admit: 2=Moderate BLANCA WOODSON EDUCATIONAL COORDINATOR Oct 01, 2018 17:14
[2018-10-01 19:10] VITALS: BP 135/94
[2018-10-01] MEDS ORDERED: POLYETHYLENE GLYCOL 17 GM (MIRALAX) PACK PO NR (19:45)
--- NOTE | 2018-10-01 20:16 | Conscious Sedation/ASA ---
Conscious Sedation Pre-Proced Time 18:00 ASA Score 2 For ASA 3 and 4: Consider anesthesia and medical clearance. Also, for patients with a history of failed moderate sedation consider anesthesia. Airway Lungs Heart ASA score ASA 1: a normal healthy patient ASA 2: a patient with a mild systemic disease (mid diabetes, controlled hypertension, obesity ASA 3: a patient with a severe systemic disease that limits activity (angina , COPD, prior Myocardial infarction) ASA 4: a patient with an incapacitating disease that is a constant threat to life (CHF, renal failure) ASA 5: a moribund patient not expected to survive 24 hrs. (ruptured aneurysm) ASA 6: a declared brain- patient whose organs are being harvested. For emergent operations, add the letter E after the classification Mallampati Classification Grade 2 Sedation Plan Analgesia, Amnesia, Plan communicated to team members, Discussed options with patient/fam, Discussed risks with patient/fam The patient is an appropriate candidate to undergo the planned procedure, sedation, and anesthesia. The patient immediately re-assessed prior to indication. BEAU STORM MD Oct 01, 2018 20:16
--- NOTE | 2018-10-01 20:17 | Progress Note-Pre Operative ---
Pre-Operative Progress Note H&P Reviewed The H&P was reviewed, patient examined and no changes noted. Date Seen by Provider: Oct 01, 2018 Time Seen by Provider: 18:00 Date H&P Reviewed: Oct 01, 2018 Time H&P Reviewed: 18:00 Pre-Operative Diagnosis: recurrent resistant symptomatic c. diff colitis. BEAU STORM MD Oct 01, 2018 20:17
[2018-10-01] MEDS ORDERED: LOPE-145 PO (20:19)
[2018-10-01] MEDS ORDERED: HYDR-34 PO (20:19)
--- NOTE | 2018-10-01 20:21 | Discharge Inst-Surgical ---
D/C Lap Instructions-RIVERO New, Converted, or Re-Newed RX: RX on Chart Follow Up Appt in 2 weeks Activity as tolerated No driving for 24 hours No [address] while on pain medications lortab BID/TID immodium QID 10 d Low residue diet for next 2 weeks. Avoid Alcohol, Caffeine, Spicy [place] and Acid foods. Drink 64 fluid oz or more of fluids per day. Symptoms to Report: Fever over 101 degree F, Nausea/Vomiting If any problems/questions: Contact your physician or go to Emergency Room BEAU STORM MD Oct 01, 2018 20:21
[2018-10-01 23:13] VITALS: BP 141/94
[2018-10-02] MEDS: NS IV 1000 ML 1,000 ML IV SCH ×2 (04:30→15:08)
[2018-10-02 08:00] VITALS: BP 139/87
[2018-10-02] MEDS: lisINopril 20 MG (PRINIVIL) TABLET PO SCH (08:04)
--- NOTE | 2018-10-02 13:11 | NUR ---
TO ENDO PER WC.
[2018-10-02] MEDS ORDERED: NS IV 500 ML 500 ML ONE (13:23)
[2018-10-02] MEDS ORDERED: NS IV 500 ML 500 ML IV PRN (13:38)
[2018-10-02] MEDS ORDERED: MIDAZOLAM 2 MG/2 ML (VERSED) VIAL IVP ONE (13:45)
[2018-10-02] MEDS ORDERED: LIDOCAINE JELLY 2% 6 ML SYRINGE MM PRN (13:45)
[2018-10-02] MEDS ORDERED: fentaNYL INJECTION 100 MCG/2 ML AMP IVP ONE (13:45)
[2018-10-02] MEDS ORDERED: fentaNYL INJECTION 100 MCG/2 ML AMP ONE ×2 (14:03→14:27)
[2018-10-02] MEDS ORDERED: MIDAZOLAM 2 MG/2 ML (VERSED) VIAL ONE (14:16)
--- NOTE | 2018-10-02 14:58 | Progress Note-Post Operative ---
Post-Operative Progess Note Surgeon (s)/Polymerization Oven Tender (s) Surgeon BEAU STORM MD Polymerization Oven Tender: none Pre-Operative Diagnosis recurrent resistant symptomatic c. diff colitis. Post-Operative Diagnosis same Procedure & Operative Findings Date of Procedure 10/02/18 Procedure Performed/Findings Colonoscopy with Open biodome fecal transplantation into terminal ileum. Anesthesia Type CS Estimated Blood Loss Estimated blood loss (mL): minimal Specimens/Packing Specimens Removed none BEAU STORM MD Oct 02, 2018 14:58
--- NOTE | 2018-10-02 15:30 | NUR ---
REC'D PER WC FROM ENDO. LETHARGIC, ON TOILET, HAVING LOOSE BM AND FLATUS. FAMILY AT BEDSIDE.
--- NOTE | 2018-10-02 15:38 | OPERATIVE REPORT ---
DATE OF SERVICE: 10/02/2018 ATTENDING PRIMARY CARE PHYSICIAN: Dr. Montoya. 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 PROCEDURE: Colonoscopy with fecal transplantation into the terminal ileum. SURGEON: Beau Storm MD ANESTHESIA: Conscious sedation. ESTIMATED BLOOD LOSS: Minimal. FINDINGS: Mild inflammatory changes of the entirety of the colon; however, there were no pseudomembranes identified. There was moderate sigmoid diverticulosis with inflammation around this region as well. No polyps or any neoplasms. DISPOSITION: The patient tolerated the procedure well. INDICATIONS: The patient is a 53-year-old male, who has had a persistent symptomatic Clostridium difficile infection. He first presented in 07/2018 with crampy lower abdominal pain as well as diarrhea. He was admitted and started on IV fluids as well as IV antibiotics. He eventually felt better and was able to tolerate a diet and his loose stools did slightly improve over time. Since that time, he has had persistent diarrhea and we then proceeded with Clostridium difficile polymerase chain reaction testing, which was positive. We continued with medical management initially with vancomycin. We continued this therapy for 2 weeks. However, he continued to have diarrhea. We then proceeded with a trial of metronidazole for 2 weeks. However, he continued to have symptoms with crampy abdominal pain as well as persistent diarrhea. We also recommended necessary lifestyle and diet accommodation including avoidance of caffeinated beverages, spicy, greasy and acidic foods as well as a high fiber diet. He returned to the office with significant dehydration as well as continued diarrhea. Due to this, he was very weak and was unable to function. He also continued to have crampy abdominal pain as well as loose stools. The patient was admitted and another C. diff test was performed, which was again positive. He was initially started on vancomycin; however, discontinued approximately 48 hours before the fecal transplantation. DESCRIPTION OF THE PROCEDURE: The patient was brought to the endoscopy suite, laid in the left lateral decubitus position. After adequate IV pain and sedating medications and conscious sedation anesthesia, a digital rectal examination was performed. Chronic stage II external and internal hemorrhoids were identified with some mild irritation of the external hemorrhoidal cushions due to the diarrhea. Normal sphincter tone was felt and there were no palpable masses. Prostate gland was palpable and appeared normal. The endoscope was then intubated to the anus and the rectum gently was insufflated. The endoscope was then advanced to the valves of Rondon of the rectum with no polyps or any neoplasms identified. There were some mild inflammatory changes; however, no pseudomembranes were identified. There was yellowish green liquid stool throughout the colon. Through the sigmoid colon, a moderate sigmoid diverticulosis was identified and this inflammation did extend through the sigmoid colon as well and it was hard to discern if this was due to the Clostridium difficile versus diverticulitis. The endoscope was then advanced through the remainder of the descending, transverse and ascending colon to the cecum. The patient was then placed in a right lateral decubitus position and the terminal ileum was then intubated. We then proceeded with 250 mL of OpenBiome prepped fecal microbiota from [facility] prepped beneficial bacteria to complete our fecal transplantation. The endoscope was then slowly withdrawn with no suction and with no other findings identified. The patient was then left in right lateral decubitus position for 15 minutes, supine for 15 minutes and then left lateral decubitus position for 15 minutes. We will also proceed with Imodium as well as continued opioid agonist in hopes of slowing his gastrointestinal motility. We will start a regular diet and once he is tolerating a diet and has adequate pain control, we will discharge him home. Job ID: [id number] DocumentID: [id number] Dictated Date: 10/02/2018 14:52:39 Shipwright Supervisor Date: 10/02/2018 15:38:03 Dictated By: BEAU STORM MD [facility]
[2018-10-02 16:00] VITALS: BP 94/56
--- NOTE | 2018-10-02 16:40 | NUR ---
RESTING WITHOUT C/O. SO AT BEDSIDE.
[2018-10-02] MEDS ORDERED: DIPHENOXYLATE/ATROPINE 2.5MG/0.025MG (LOMOTIL) TAB PO SCH (17:00)
== END 2018-10-02 19:30 | disposition home or self-care (01) | DRG 372 ==
LOC: 4TH 16:50
PROVIDERS: ADMIT Surgery; ATTEND Surgery
PROC: 3E0H8GC Introduction of Other Therapeutic Substance into Lower GI, Via Natural or Artificial Opening Endoscopic (ICD-10-PCS; 2018-10-02)
PROC: 0DJD8ZZ Inspection of Lower Intestinal Tract, Via Natural or Artificial Opening Endoscopic (ICD-10-PCS; principal; 2018-10-02 13:30)
DX: A04.71 Enterocolitis due to Clostridium difficile, recurrent (principal); K57.32 Diverticulitis of large intestine without perforation or abscess without bleeding; K64.1 Second degree hemorrhoids; I10 Essential (primary) hypertension; K21.9 Gastro-esophageal reflux disease without esophagitis; G47.00 Insomnia, unspecified; Z87.891 Personal history of nicotine dependence; Z80.1 Family history of malignant neoplasm of trachea, bronchus and lung
CPT/HCPCS: 36415; 74177; 76705; 78227; 80053; 85007; 85027; 87015; 87045; 87046; 87324; 87449; 87899

== ENCOUNTER 2020-08-07 05:30 | Outpatient (RCR) | payer BC ==
[~2020-08-07] VITALS: Ht 182.9 cm; Wt 90.8 kg
[~2020-08-07 05:30] MED LIST changes: +CIPR500T4 PO; +LOPE-175 PO; +METR-145 PO
== END 2020-08-07 09:47 | disposition home or self-care (01) ==
LOC: PREOP 05:30
PROVIDERS: ATTEND Surgery
DX: Z01.812 Encounter for preprocedural laboratory examination (principal); K57.32 Diverticulitis of large intestine without perforation or abscess without bleeding; Z20.822 Contact with and (suspected) exposure to COVID-19
CPT/HCPCS: 87635

== ENCOUNTER 2020-08-09 08:53 | Day surgery (SDC) | payer BC ==
[~2020-08-09] VITALS: Ht 183 cm; Wt 91.0 kg
[2020-08-09] VITALS (17 sets, daily range): BP systolic 112–146; BP diastolic 70–97
[~2020-08-09 08:53] MED LIST changes: -CATHETER FLUSH 10 ML SYR IV PRN; -HOLD METFORMIN - RECEIVED CONTRAST 20 ML VIAL IV SCH; -IOHEXOL 350 MG/ML 100 ML (OMNIPAQUE 350) VIAL IV ONE; -NS 100 ML (IVPB) BAG IV ONE
[2020-08-09] MEDS ORDERED: NS IV 500 ML 500 ML ONE (09:04)
[2020-08-09] MEDS ORDERED: LIDOCAINE JELLY 2% 6 ML SYRINGE MM PRN (09:15)
[2020-08-09] MEDS ORDERED: NS IV 500 ML 500 ML IV PRN (09:15)
[2020-08-09] MEDS ORDERED: MIDAZOLAM 5 MG/5 ML (VERSED) VIAL IV ONE (09:15)
[2020-08-09] MEDS ORDERED: fentaNYL INJECTION 100 MCG/2 ML AMP IVP ONE (09:15)
[2020-08-09] MEDS ORDERED: LIDOCAINE JELLY 2% 6 ML SYRINGE ONE (09:27)
[2020-08-09] MEDS ORDERED: MIDAZOLAM 5 MG/5 ML (VERSED) VIAL ONE (09:27)
[2020-08-09] MEDS ORDERED: fentaNYL INJECTION 100 MCG/2 ML AMP ONE ×2 (09:28→10:54)
--- NOTE | 2020-08-09 10:41 | Conscious Sedation/ASA ---
Conscious Sedation Pre-Proced Time 10:00 ASA Score 2 For ASA 3 and 4: Consider anesthesia and medical clearance. Also, for patients with a history of failed moderate sedation consider anesthesia. Airway Lungs Heart ASA score ASA 1: a normal healthy patient ASA 2: a patient with a mild systemic disease (mid diabetes, controlled hypertension, obesity ASA 3: a patient with a severe systemic disease that limits activity (angina, COPD, prior Myocardial infarction) ASA 4: a patient with an incapacitating disease that is a constant threat to life (CHF, renal failure) ASA 5: a moribund patient not expected to survive 24 hrs. (ruptured aneurysm) ASA 6: a declared brain- patient whose organs are being harvested. For emergent operations, add the letter E after the classification Mallampati Classification Grade 2 Sedation Plan Analgesia, Amnesia, Plan communicated to team members, Discussed options with patient/fam, Discussed risks with patient/fam The patient is an appropriate candidate to undergo the planned procedure, sedation, and anesthesia. The patient immediately re-assessed prior to indication. BEAU STORM MD Aug 09, 2020 10:41
--- NOTE | 2020-08-09 10:42 | Progress Note-Pre Operative ---
Pre-Operative Progress Note H&P Reviewed The H&P was reviewed, patient examined and no changes noted. Date Seen by Provider: Aug 09, 2020 Time Seen by Provider: 10:00 Date H&P Reviewed: Aug 09, 2020 Time H&P Reviewed: 10:00 Pre-Operative Diagnosis: LLQ pain, intermittent diarrhea BEAU STORM MD Aug 09, 2020 10:42
--- NOTE | 2020-08-09 10:44 | Discharge Inst-Surgical ---
D/C Lap Instructions-EMETERIO Follow Up Appt in 2 weeks Activity as tolerated High Fiber Diet 25g or more per day Avoid Alcohol, Caffeine, Spicy [place] and Acid foods. Drink 64 fluid oz or more of fluids per day. Symptoms to Report: Fever over 101 degree F, Nausea/Vomiting If any problems/questions: Contact your physician or go to Emergency Room BEAU STORM MD Aug 09, 2020 10:44
[2020-08-09] MEDS ORDERED: ACETAMINOPHEN 325 MG TABLET PO PRN (10:45)
[2020-08-09] MEDS ORDERED: ONDANSETRON 4 MG/2 ML (SDV) Z0FRAN IVP PRN (10:45)
[2020-08-09] MEDS ORDERED: HYDROcodone/APAP 5 MG/325 MG (LORTAB) TAB PO PRN (10:45)
[2020-08-09] MEDS ORDERED: morphine INJ 10 MG/ML 1ML (SYR OR VIAL) IVP PRN ×2 (10:45)
--- NOTE | 2020-08-09 11:32 | Progress Note-Post Operative ---
Post-Operative Progess Note Surgeon (s)/Mill Operator (s) Surgeon BEAU STORM MD Mill Operator: none Pre-Operative Diagnosis LLQ pain, intermittent diarrhea Post-Operative Diagnosis mild chronic stage 2 ext and int hemorrhoids, sigmoid diverticulitis. Procedure & Operative Findings Date of Procedure 08/09/20 Procedure Performed/Findings colonoscopy with bx and submucosal injection. Anesthesia Type cs Estimated Blood Loss Estimated blood loss (mL): minimal Specimens/Packing Specimens Removed cecum, ascending, descending, sigmoid. BEAU STORM MD Aug 09, 2020 11:32
[2020-08-09] MEDS ORDERED: morphine INJ 10 MG/ML 1ML (SYR OR VIAL) ONE (11:35)
[2020-08-09 12:35] LABS: BUN/CREATININE RATIO 11; CREATININE SERUM 0.89 MG/DL (0.60-1.30); GFR ESTIMATED > 60
[2020-08-09] MEDS ORDERED: HOLD METFORMIN - RECEIVED CONTRAST 20 ML VIAL IV SCH (13:45)
[2020-08-09] MEDS ORDERED: NS 100 ML (IVPB) BAG IV ONE (13:45)
[2020-08-09] MEDS ORDERED: CATHETER FLUSH 10 ML SYR IV PRN (13:45)
[2020-08-09] MEDS ORDERED: IOHEXOL 350 MG/ML 100 ML (OMNIPAQUE 350) VIAL IV ONE (13:45)
--- NOTE | 2020-08-09 14:51 | OPERATIVE REPORT ---
DATE OF SERVICE: 08/09/2020 ATTENDING PRIMARY CARE PHYSICIAN: Harris Tripp MD PREOPERATIVE DIAGNOSES: Persistent left lower abdominal quadrant pain and intermittent episodes of diarrhea and history of resistant C. difficile colitis. POSTOPERATIVE DIAGNOSES: Mild chronic stage II external and internal hemorrhoids short segment of sigmoid diverticulosis with inflammatory changes indicating likely diverticulitis. The remainder of the colon appeared normal. There were no other patchy inflammatory spots throughout the colon. PROCEDURE: Colonoscopy with biopsy and submucosal injection. SURGEON: Beau Storm MD ANESTHESIA: Conscious sedation. ESTIMATED BLOOD LOSS: Minimal. FINDINGS: Mild chronic stage II external and internal hemorrhoids short segment of sigmoid diverticulosis with inflammatory changes indicating likely diverticulitis. The remainder of the colon appeared normal. There were no other patchy inflammatory spots throughout the colon. DISPOSITION: The patient tolerated the procedure well. INDICATIONS: The patient is a 55-year-old male known to us. We had initially seen him in early 2018 for abdominal pain and persistent diarrhea and was found to be Clostridium difficile positive. He initially presented to [facility] where a CT scan was performed, which did show a colitis. There were no abscesses identified. He was treated medically initially with vancomycin; however, had persistence of symptoms. He continued to have diarrhea and dehydration and was admitted and was started on Flagyl; however, he continued to have symptoms. Eventually, we did do a colonoscopy as well as a fecal transplant. He was found to have inflammation throughout the colon; however, no pseudomembranes. There was also what appeared to be a short segment of moderate sigmoid diverticulosis with some surrounding inflammation as well at that time. He states that after the fecal transplant, his diarrhea did improve significantly; however, he has still had crampy left lower abdominal quadrant pain on an intermittent basis. He reports that at times associated with the crampy abdominal pain he does have diarrhea and will take Imodium as well as probiotics and this most of the time resolve on its own. He states that he has had approximately two other episodes with the diarrhea and the pain persisted and he then proceeded with taking oral antibiotics and eventually this did resolve. He states that the diarrhea is more intermittent and not similar to that time he had Clostridium difficile colitis; however, the persistent pain in the left lower abdominal quadrant is a more persistent as well as significant symptom. He does report intermittent episodes of constipation as well as sometimes when he takes Imodium as well as pain medications. He does not report any red blood per rectum nor any dark tarry stools. DESCRIPTION OF PROCEDURE: The patient was brought to the endoscopy suite, laid in the left lateral decubitus position. After adequate IV pain and sedative medications and conscious sedation anesthesia, digital rectal examination was performed. Chronic stage II external and internal hemorrhoids were identified, which were not actively edematous nor inflamed and no bleeding. Normal sphincter tone was felt and there were no palpable masses. Prostate gland was palpable and appeared normal. The endoscope was then intubated and anus and rectum gently insufflated. The endoscope was then advanced to the valves of Rondon of the rectum with no polyps or any neoplasms identified as well as no mucosal inflammatory changes. Through the sigmoid colon, there was what appeared to be a short segment of sigmoid diverticulosis as well as surrounding inflammation, likely consistent with an active diverticulitis. Multiple biopsies were taken of this region with visualization of good hemostasis. We were able to navigate through this area of colitis due to the descending colon where there was no mucosal inflammatory changes as well as no diverticulosis. The endoscope was then advanced to remainder of the transverse and ascending colon to the cecum, which appeared normal. We also want to rule out any inflammatory bowel disease and proceed with biopsies of the cecum, ascending colon, descending colon as well as the sigmoid colon. We also did submucosal injection around the area of the segmental diverticulitis in the event that he needs to proceed with surgical resection. The endoscope was then slowly withdrawn while taking a second look and suctioning of residual air with no additional findings. The patient tolerated the procedure well. We will get a CT scan of the abdomen and pelvis and continue to monitor his symptoms; however, due to the resistant nature of his likely sigmoid diverticulitis as well as awaiting the results of the biopsy results to rule out inflammatory bowel disease, he may be a candidate for a low anterior sigmoidal colonic resection with anastomosis. Job ID: [id number] DocumentID: [id number] Dictated Date: 08/09/2020 11:39:41 Aging Department Supervisor Date: 08/09/2020 14:50:57 Dictated By: BEAU STORM MD
== END 2020-08-09 13:50 | disposition home or self-care (01) ==
LOC: ENDO 08:53
PROVIDERS: ATTEND Surgery
DX: K64.1 Second degree hemorrhoids (principal); K57.30 Diverticulosis of large intestine without perforation or abscess without bleeding; Z79.82 Long term (current) use of aspirin; Z83.3 Family history of diabetes mellitus
CPT/HCPCS: 36415; 82565; 84520; 88305

== ENCOUNTER → 2020-08-09 | Outpatient (CLI) | payer BC ==
[~2020-08-09] MED LIST changes: +CATHETER FLUSH 10 ML SYR IV PRN; +HOLD METFORMIN - RECEIVED CONTRAST 20 ML VIAL IV SCH; +IOHEXOL 350 MG/ML 100 ML (OMNIPAQUE 350) VIAL IV ONE; +NS 100 ML (IVPB) BAG IV ONE
--- NOTE | 2020-08-09 13:55 | Diagnostic Imaging Report ---
PROCEDURE: CT abdomen and pelvis with and without contrast. TECHNIQUE: Precontrast acquisitions were acquired through the abdomen and pelvis. Multiple contiguous axial images were obtained through the abdomen and pelvis after the administration of intravenous contrast. Auto Exposure Controls were utilized during the CT exam to meet ALARA standards for radiation dose reduction. INDICATION: Status post colonoscopy. Patient has recurrent diarrhea and diverticulitis. COMPARISON: Correlation is made with prior CT from 09/29/2018. FINDINGS: Imaging through the lung bases demonstrates minimal scarring or atelectasis in the right lower lobe. No discrete liver mass is detected. Gallbladder is unremarkable. There is no biliary ductal dilatation. Pancreas and spleen are unremarkable. No adrenal mass is detected. Right kidney is unremarkable. Left kidney does contain cortical low-attenuation lesions, suggestive of cysts, and appears similar to prior exam. Aorta is nonaneurysmal. No central retroperitoneal or mesenteric lymphadenopathy is seen. There is some gaseous distention to the colon. Patient reportedly is recently status post colonoscopy. There appears to be significant diverticular disease involving the sigmoid colon. The sigmoid is thick walled and findings are suggestive of acute diverticulitis. There is some trace fluid in the pelvis and perisigmoidal inflammatory stranding. The bladder is unremarkable. Prostate is unremarkable. IMPRESSION: 1. Findings suggestive of acute sigmoid diverticulitis. No definite abscess formation or bowel obstruction is identified. 2. No other significant abnormality in the abdomen or pelvis is identified. Dictated by: Dictated on workstation # [id number]
== END ==
LOC: RAD 11:56
PROVIDERS: ATTEND Surgery
DX: K57.92 Diverticulitis of intestine, part unspecified, without perforation or abscess without bleeding (principal); R19.7 Diarrhea, unspecified
CPT/HCPCS: 74178

== ENCOUNTER 2020-09-05 05:33 | Outpatient (RCR) | payer BC ==
[~2020-09-05] VITALS: Ht 182.9 cm; Wt 93.0 kg
[~2020-09-05 05:33] MED LIST changes: -CIPR500T4 PO; +CIPR500T5 PO; -LISI-552 PO; +LISI20TA26 PO
== END 2020-09-05 12:12 | disposition home or self-care (01) ==
LOC: PREOP 05:33
PROVIDERS: ATTEND Surgery
DX: Z01.812 Encounter for preprocedural laboratory examination (principal); K57.30 Diverticulosis of large intestine without perforation or abscess without bleeding; Z20.822 Contact with and (suspected) exposure to COVID-19
CPT/HCPCS: 87635

== ENCOUNTER 2020-09-07 08:25 | Inpatient (IN) | payer BC ==
[2020-09-07] VITALS (14 sets, daily range): BP systolic 89–127; BP diastolic 56–93
[~2020-09-07] VITALS: Ht 182.9 cm; Wt 93.0 kg
[2020-09-07] MEDS ORDERED: HEParin (CENTRAL IV FLUSH) 500 UNIT/5 ML SYR ONE (08:32)
[2020-09-07] MEDS ORDERED: LIDOCAINE/EPI 1%-1:100,000 (XYLOCAINE) 50 ML ONE (08:32)
--- NOTE | 2020-09-07 08:42 | Progress Note-Pre Operative ---
Pre-Operative Progress Note H&P Reviewed The H&P was reviewed, patient examined and no changes noted. Date Seen by Provider: Sep 07, 2020 Time Seen by Provider: 08:40 Date H&P Reviewed: Sep 07, 2020 Time H&P Reviewed: 08:35 Pre-Operative Diagnosis: Recurrent sigmoid diverticulitis BLANCA WOODSON APRN Sep 07, 2020 08:42
[2020-09-07] MEDS ORDERED: ceFAZolin 2 GM IV Premixed 50 ML IV ONE (08:45)
[2020-09-07] MEDS ORDERED: metroNIDAZOLE 500MG/100ML IVPB 100 ML IV ONE (08:45)
[2020-09-07] MEDS: LACTATED RINGERS 1,000 ML IV PRN ×4 (08:49→14:51)
[2020-09-07] MEDS ORDERED: ONDANSETRON 4 MG/2 ML (SDV) Z0FRAN ONE (08:51)
[2020-09-07] MEDS ORDERED: MIDAZOLAM 2 MG/2 ML (VERSED) VIAL ONE (08:51)
[2020-09-07] MEDS ORDERED: SEVOFLURANE (ULTANE) 15 ML INHAL SOLN ONE ×2 (08:51→15:41)
[2020-09-07] MEDS ORDERED: NEOSTIGMINE 3 MG/3 ML VIAL ONE (08:51)
[2020-09-07] MEDS ORDERED: ROCURONIUM 10 MG/ML 5 ML SYRINGE IV ONE ×3 (08:51→12:56)
[2020-09-07] MEDS ORDERED: fentaNYL INJECTION 100 MCG/2 ML AMP ONE (08:51)
[2020-09-07] MEDS ORDERED: GLYCOPYRROLATE 0.2 MG/ML (ROBINUL) 2 ML VIAL ONE (08:51)
[2020-09-07] MEDS ORDERED: proPOfol 200 MG/20 ML (DIPRIVAN) VIAL IV ONE (08:51)
[2020-09-07] MEDS ORDERED: LIDOCAINE PF 2% 5 ML (XYLOCAINE) VIAL ONE (08:51)
[2020-09-07] MEDS ORDERED: ceFAZolin 2 GM IV Premixed 50 ML ONE (08:52)
[2020-09-07] MEDS ORDERED: metroNIDAZOLE 500MG/100ML IVPB 100 ML ONE (08:52)
[2020-09-07 09:00] LABS: BASOPHILS # (AUTO) 0.1 10^3/uL (0.0-0.1); BASOPHILS % (AUTO) 1 % (0-10); EOSINOPHILS # (AUTO) 0.6 10^3/uL (0.0-0.3); EOSINOPHILS % (AUTO) 6 % (0-10); HEMATOCRIT 41 % (40-54); HEMOGLOBIN 13.8 g/dL (13.3-17.7); LYMPHOCYTES # (AUTO) 1.6 10^3/uL (1.0-4.0); LYMPHOCYTES % (AUTO) 15 % (12-44); MEAN CORPUSCULAR HEMOGLOBIN 30 pg (25-34); MEAN CORPUSCULAR HGB CONC 34 g/dL (32-36); MEAN CORPUSCULAR VOLUME 88 fL (80-99); MONOCYTES % (AUTO) 10 % (0-12); NEUTROPHILS % (AUTO) 68 % (42-75); PLATELET COUNT 209 10^3/uL (130-400); WHITE BLOOD COUNT 10.2 10^3/uL (4.3-11.0)
--- NOTE | 2020-09-07 10:04 | Progress Note-Pre Operative ---
Pre-Operative Progress Note H&P Reviewed The H&P was reviewed, patient examined and no changes noted. Date Seen by Provider: Sep 07, 2020 Time Seen by Provider: 10:03 Date H&P Reviewed: Sep 07, 2020 Time H&P Reviewed: 10:03 Pre-Operative Diagnosis: DIFFUSE DIVERTICULOSIS WITH HISTORY OF DIVERTICULITIS MICHAEL ALEGRE MD Sep 07, 2020 10:04
--- NOTE | 2020-09-07 10:05 | Progress Note-Post Operative ---
Post-Operative Progess Note Surgeon (s)/Director Post (s) Surgeon MICHAEL ALEGRE MD Director Post: NONE Pre-Operative Diagnosis DIFFUSE DIVERTICULOSIS WITH HISTORY OF DIVERTICULITIS Post-Operative Diagnosis SAME Procedure & Operative Findings Date of Procedure 09/07/20 Procedure Performed/Findings CYSTOSCOPY WITH INSERTION OF BILATERAL URETERAL STENTS Anesthesia Type GENERAL Estimated Blood Loss Estimated blood loss (mL): NONE Specimens/Packing Specimens Removed NONE Packing: NONE MICHAEL ALEGRE MD Sep 07, 2020 10:05
[2020-09-07] MEDS ORDERED: PHENYLEPHRINE 100 MCG/ML 10 ML (ANESTHESIA) SYR ONE (11:03)
[2020-09-07] MEDS ORDERED: HYDROmorphone 2 MG/ML VIAL (DILAUDID) ONE (12:19)
--- NOTE | 2020-09-07 13:42 | OPERATIVE REPORT ---
DATE OF SERVICE: 09/07/2020 PREOPERATIVE DIAGNOSIS: Diffuse diverticular disease with history of diverticulitis. POSTOPERATIVE DIAGNOSIS: Diffuse diverticular disease with history of diverticulitis. OPERATION PERFORMED: Cystoscopy and insertion of double-J ureteral stents. SURGEON: Randy Alegre MD ANESTHESIA: General. COMPLICATIONS: None. DESCRIPTION OF PROCEDURE: Under satisfactory general anesthesia, the patient in lithotomy position, genitalia were prepped and draped in the usual sterile fashion. A 23-[place] cystoscope was introduced under vision. The anterior urethra was normal. The prostate was mildly enlarged with a mild median bar. The bladder was entered, revealed mild trabeculations. Ureteric orifices normal in shape, size and configuration with clear effluxes. I went ahead first and inserted a 6-[place] spiral tip ureteral catheter into the left ureteral orifice and up all the way to the left renal pelvis guided fluoroscopically. In the same way, I inserted another one on the right side and same. Then, I removed the cystoscope, keeping the catheter in place and inserted a Pradhan catheter draining clear urine and then the special attachment for the ureteral catheter as well as the urethral bag. The patient tolerated the procedure and anesthesia well and Dr. Cook proceeded with his part of his surgery that he will dictate. Job ID: [id number] DocumentID: [id number] Dictated Date: 09/07/2020 10:54:13 Waste Cotton Cleaner Date: 09/07/2020 13:41:00 Dictated By: RANDY ALEGRE MD
[2020-09-07] MEDS ORDERED: MEPERIDINE (DEMEROL) INJ 50 MG/ML IVP ONE (14:45)
[2020-09-07] MEDS ORDERED: HYDROmorphone 2 MG/ML VIAL (DILAUDID) IV ONE (14:45)
[2020-09-07] MEDS ORDERED: PROMETHAZINE INJ 25 MG/ML (PHENERGAN) AMP IVP ONE (14:45)
[2020-09-07] MEDS ORDERED: ONDANSETRON 4 MG/2 ML (SDV) Z0FRAN IVP PRN (14:45)
[2020-09-07] MEDS ORDERED: morphine INJ 10 MG/ML 1ML (SYR OR VIAL) IVP ONE (14:45)
[2020-09-07] MEDS ORDERED: BUPIVACAINE 0.5% 30 ML (SENSORCAINE) VIAL ONE (14:54)
[2020-09-07] MEDS ORDERED: morphine INJ 10 MG/ML 1ML (SYR OR VIAL) ONE (15:15)
[2020-09-07] MEDS ORDERED: ONDANSETRON 4 MG/2 ML (SDV) Z0FRAN IV PRN (16:15)
[2020-09-07] MEDS ORDERED: diphenhydrAMINE 50 MG/ML INJ (BENADRYL) IVP PRN (16:15)
[2020-09-07] MEDS ORDERED: NALOXONE 0.4 MG/ML 1 ML (NARCAN) VIAL IV PRN (16:15)
[2020-09-07] MEDS ORDERED: METOCLOPRAMIDE INJ 10 MG/2 ML (REGLAN) IV PRN (16:15)
[2020-09-07] MEDS ORDERED: NS IV 1000 ML 1,000 ML IV SCH (16:15)
[2020-09-07] MEDS ORDERED: diphenhydrAMINE 50 MG/ML INJ (BENADRYL) IV PRN (16:15)
--- NOTE | 2020-09-07 16:18 | Progress Note-Post Operative ---
Post-Operative Progess Note Surgeon (s)/Manager Voice (s) Surgeon BEAU STORM MD Manager Voice: NONE Pre-Operative Diagnosis DIFFUSE DIVERTICULOSIS WITH HISTORY OF DIVERTICULITIS Post-Operative Diagnosis sane Procedure & Operative Findings Date of Procedure 09/07/20 Procedure Performed/Findings laparoscopic low anterior colorectal resection. left subclavian central venous catheter placement. Anesthesia Type get Estimated Blood Loss Estimated blood loss (mL): minimal Specimens/Packing Specimens Removed sigmoid-rectum Packing: NONE BEAU STORM MD Sep 07, 2020 16:18
--- NOTE | 2020-09-07 16:30 | Diagnostic Imaging Report ---
INDICATION: Evaluate central line. COMPARISON: None FINDINGS: Single frontal radiographic view of the chest was obtained and demonstrates new left-sided central venous catheter, tip of which terminates in the high SVC. Lungs show low inspiratory volumes with asymmetric elevation of the right hemidiaphragm, but are otherwise clear. There is no large effusion or pneumothorax. Cardiac silhouette and pulmonary vasculature are within normal limits. Osseous structures show no gross acute abnormalities. IMPRESSION: 1. New left-sided subclavian central venous catheter with tip in the high SVC. 2. Low lung volumes. No pneumothorax. Dictated by: Dictated on workstation # [id number]
[2020-09-07] MEDS: 1/2 NS W/KCL 20 MEQ/L 1,000 ML IV SCH (17:04)
[2020-09-07] MEDS: metroNIDAZOLE 500MG/100ML IVPB 100 ML IV SCH (17:05)
[2020-09-07] MEDS: ONDANSETRON 4 MG/2 ML (SDV) Z0FRAN IVP SCH (17:07)
[2020-09-07] MEDS: METOCLOPRAMIDE INJ 10 MG/2 ML (REGLAN) IVP SCH (17:07)
--- NOTE | 2020-09-07 18:26 | Diagnostic Imaging Report ---
INDICATION: NG placement. EXAMINATION: KUB. FINDINGS: There is a gastrojejunostomy tube with the distal component directed into the pelvis. I cannot visualize any NG catheter. IMPRESSION: Gastrojejunostomy device positioned as described. No demonstrated reported NG catheter. Dictated by: Dictated on workstation # [id number]
[2020-09-07] MEDS: fentaNYL INJECTION 1,000 MCG in NS (IVPB) 80 ML IV SCH (18:38)
--- NOTE | 2020-09-07 18:40 | OPERATIVE REPORT ---
DATE OF SERVICE: 09/07/2020 ATTENDING PRIMARY CARE PHYSICIAN Kip Montoya MD PREOPERATIVE DIAGNOSIS: Recurrent severe symptomatic sigmoid diverticulitis. POSTOPERATIVE DIAGNOSIS: Recurrent severe symptomatic sigmoid diverticulitis. PROCEDURE PERFORMED: Laparoscopic low anterior colorectal resection and placement of left subclavian central venous catheter. SURGEON: Kari Cook MD PLUMBER AND TINNER: Caleb Ruiz APRN ANESTHESIA: General endotracheal. ESTIMATED BLOOD LOSS: Minimal. FINDINGS: Chronic inflammation of the sigmoid colon. Before the procedure, urology had placed bilateral ureteral stents for identification of the ureters. DISPOSITION: The patient tolerated the procedure well. ESTIMATED BLOOD LOSS: 200 mL. INDICATIONS: The patient is a 55-year-old male known to us. We initially seen him in early 2018 for abdominal pain and persistent diarrhea and was found to be Clostridium difficile positive. He initially presented to [facility] where a CT scan was performed, which did show colitis. There were no abscesses identified at the time. He was treated medically initially with vancomycin; however, had persistence of symptoms. He continued to have diarrhea as well as dehydration and was once again admitted and started on metronidazole; however, continued to have symptoms. Eventually, he did undergo colonoscopy as well as fecal transplant. He was found to have inflammation throughout the colon; however, no pseudomembranes. There also appeared a short segment of moderate sigmoid diverticulosis; however, he had persistent crampy left lower quadrant abdominal pain on an intermittent basis. He was continued on probiotics as well as antibiotics and would have eventual resolution; however, reoccurrence of symptoms. On 08/09/2020, he underwent a colonoscopy with biopsies as well as submucosal injection with findings of mild chronic stage II external and internal hemorrhoids with a short segment of sigmoid diverticulosis with inflammatory changes likely indicating recurrent diverticulitis. The remainder of the colon appeared normal. He also did undergo a CT scan at that time, which did show acute sigmoid diverticulitis with no definitive abscess or any bowel obstruction identified. His biopsies were negative for neoplasia or colitis. Due to his recurrent complicated diverticulitis, he wanted to proceed with a sigmoid colorectal resection. DESCRIPTION OF PROCEDURE: The patient was brought to the operating room, laid supine on the table. After adequate IV pain and sedative medications and general endotracheal intubation, urology proceeded with a cystoscopy as well as bilateral stent placement. The arms were tucked, and a left subclavian central venous catheter was placed after the neck and chest were prepped and draped in standard surgical fashion and the subclavian vein cannulated withdrawing of venous blood. The guidewire was inserted without any resistance, cannulating needle removed, and the triple lumen central venous catheter was placed over the guidewire using the Seldinger technique and the guidewire removed. All three ports itzel venous blood and saline push without any resistance. Catheter was then cleaned and covered with Op-Site. The patient was placed in modified lithotomy position and the abdomen was prepped and draped in standard surgical fashion. A 0.5% Marcaine with epinephrine was used to anesthetize the overlying skin left upper abdominal quadrant and a transverse skin incision made using a 15 blade. A 0 silk suture was applied to the medial aspect of the incision for traction. A Veress needle inserted with a low opening pressure of 0 mmHg. The abdomen was then insufflated to 15 mmHg pressure. The Veress needle was removed and 5 mm trocars followed by a 5 mm 45-degree angle laparoscope visualizing the peritoneal cavity. Four-quadrant abdominal exploration was performed. The area of previous markings of the segment of diverticulitis identified and again consistent with an acute on chronic diverticulitis; however, no abscesses were identified as well as no neoplasia. We then proceeded to place a supraumbilical 10 mm port as well as two right lower abdominal quadrant 5 mm ports. The patient was then placed in a Trendelenburg position as well as planed left side up, right side down. The peritoneal reflection was then taken down using electrocautery. We then proceeded with a medial to lateral dissection of the meso colon close to sigmoid colon and rectum by using the Sonicision. There is a significant amount of scar tissue from his previous episodes of diverticulitis, which was gently taken down using the Sonicision as well. Once we reached soft and viable distal portion of the rectum, we decided to proceed with a stapled transection using a TA contour green load stapler. Good hemostasis was observed. There was adequate length of unaffected portion of the sigmoid colon, which was identified as well. A 5 mm trocar skin incision site was then extended to pull the specimen out and the unaffected portion of the sigmoid colon was then pursestringed and the colon resected using a 10 blade. We then proceeded with a graded dilatation of the colon and decided to proceed with a 29mm EEA stapler and the anvil was placed into distal end of the colon and the Pursestring tied. The colon was reduced back into the abdomen. Towel clamps were applied to the open incision and the abdomen insufflated. We then proceeded with dilatation of the anus and rectum with a 31 mm and the EEA 29 mm stapler was placed into the rectum and identified protruding along the stapled end of the distal rectum. The stem was then opened under direct visualization and the anvil placed onto the stem and closed and the stapler fired and removed without any resistance. The proximal and distal rings were completely intact. Tisseel fibrin glue was then placed onto the staple line. The 10 mm port site fascia and peritoneum were then closed under direct visualization using a Chandu-Faby device and 0 Vicryl suture. The larger incision where the specimen was removed was closed using #1 looped PDS suture. All skin incisions were closed using 4-0 Monocryl running subcuticular sutures. Wounds were then cleaned and covered with Dermabond. Before this, a 19-Irish Ede-Allen drain was also placed around the area of the anastomosis and pulled through the left upper abdominal quadrant 5 mm port and sutured to the skin using 3-0 nylon suture. The patient tolerated the procedure well. We will proceed with pain control with a SANITARIAN pump as well as DVT prophylaxis with early ambulation and calf SCDs as well as Lovenox injections. Once he does have bowel function, we will remove the NG tube, start clear liquid diet and advance as tolerated. Job ID: [id number] DocumentID: [id number] Dictated Date: 09/07/2020 14:24:02 Carbide Operator Date: 09/07/2020 18:40:21 Dictated By: KARI COOK MD [facility]
[2020-09-07] MEDS: RT-ALBUTEROL SULF 2.5 MG/3 ML PRE-MIX VIAL INH SCH ×2 (19:20→19:27)
[2020-09-07] MEDS: ceFAZolin 2 GM IV Premixed 50 ML IV SCH (21:51)
[2020-09-07] MEDS: ENOXAPARIN 30 MG/0.3 ML (LOVENOX) SYR SC SCH (21:52)
[2020-09-08] MEDS: metroNIDAZOLE 500MG/100ML IVPB 100 ML IV SCH ×2 (00:12→08:57)
[2020-09-08] MEDS: ONDANSETRON 4 MG/2 ML (SDV) Z0FRAN IVP SCH ×3 (00:13→11:50)
[2020-09-08] MEDS: METOCLOPRAMIDE INJ 10 MG/2 ML (REGLAN) IVP SCH ×3 (00:13→11:50)
[2020-09-08] MEDS: RT-ALBUTEROL SULF 2.5 MG/3 ML PRE-MIX VIAL INH SCH ×6 (01:00→23:08)
[2020-09-08] MEDS: 1/2 NS W/KCL 20 MEQ/L 1,000 ML IV SCH ×5 (02:00→23:22)
[2020-09-08 03:49] VITALS: BP 129/86
[2020-09-08] MEDS: oxyCODONE 5 MG/5 ML ORAL SOLN (roxiCODONE) 5 ML UDC PO PRN ×2 (05:41→11:50)
[2020-09-08] MEDS: ceFAZolin 2 GM IV Premixed 50 ML IV SCH ×2 (05:42→14:15)
[2020-09-08 06:03] LABS: HEMOGLOBIN 11.4 g/dL (13.3-17.7); MEAN PLATELET VOLUME 10.5 fL (9.0-12.2); WHITE BLOOD COUNT 11.3 10^3/uL (4.3-11.0)
[2020-09-08 06:12] LABS: CHLORIDE 104 MMOL/L (98-107); POTASSIUM 4.4 MMOL/L (3.6-5.0); SODIUM 136 MMOL/L (135-145)
[2020-09-08 06:13] LABS: CALCIUM 8.3 MG/DL (8.5-10.1)
[2020-09-08 06:14] LABS: GLUCOSE 114 MG/DL (70-105)
[2020-09-08 06:15] LABS: CARBON DIOXIDE 23 MMOL/L (21-32)
[2020-09-08 06:17] LABS: CREATININE SERUM 0.91 MG/DL (0.60-1.30); GFR ESTIMATED > 60
[2020-09-08 06:18] LABS: BUN/CREATININE RATIO 11
[2020-09-08 08:00] VITALS: BP 134/84
--- NOTE | 2020-09-08 08:13 | Anesthesia-General Post-Op ---
General Patient Condition Mental Status/LOC: Same as Preop Cardiovascular: Satisfactory Nausea/Vomiting: Absent Respiratory: Satisfactory Pain: Controlled Complications: Absent Post Op Complications Complications None Follow Up Care/Instructions Patient Instructions None needed. Anesthesia/Patient Condition Patient Condition Patient is doing well, no complaints, stable vital signs, no apparent adverse anesthesia problems. No complications reported per nursing. SURENDRA GARCÍA CRNA Sep 08, 2020 08:13
[2020-09-08] MEDS: PANTOPRAZOLE 40 MG (PROTONIX) VIAL IVP SCH (08:57)
[2020-09-08] MEDS: ENOXAPARIN 30 MG/0.3 ML (LOVENOX) SYR SC SCH ×2 (08:57→19:56)
[2020-09-08] MEDS: SENNA W/DOCUSATE (SENOKOT S) TABLET PO SCH (09:00)
--- NOTE | 2020-09-08 11:40 | Progress Note ---
Subjective Date Seen by a Provider: Sep 08, 2020 Time Seen by a Provider: 10:00 Subjective/Events-last exam doing ok. still has some pain with FLIGHT CONTROL MANAGER. did not sleep last night. no fe ailyn/chills. good u/o which is clearing up. Objective Exam Vital Signs Date Time Temp Pulse Resp B/P (MAP) Pulse Ox O2 Delivery O2 Flow Rate FiO2 09/08/20 09:00 Room Air 09/08/20 08:00 36.8 93 20 134/84 (101) 93 Nasal Cannula 2.00 09/08/20 07:00 18 09/08/20 06:36 91 Room Air 09/08/20 03:49 37.2 90 18 129/86 (100) 94 Nasal Cannula 1.00 09/07/20 23:36 37.5 107 18 127/83 (98) 95 Nasal Cannula 2.00 09/07/20 21:00 18 09/07/20 21:00 Nasal Cannula 2.00 09/07/20 20:00 36.6 113 18 108/72 (84) 95 Nasal Cannula 2.00 09/07/20 19:28 95 Nasal Cannula 2.00 28 09/07/20 19:00 36.4 111 18 110/71 (84) 95 Nasal Cannula 2.00 09/07/20 18:00 36.4 111 18 116/72 (87) 91 Room Air 09/07/20 17:00 36.8 106 18 110/68 (82) 97 Nasal Cannula 2.00 09/07/20 16:00 36.6 104 18 120/78 (92) 96 Nasal Cannula 2.00 09/07/20 15:45 Nasal Cannula 2.00 09/07/20 15:40 36.8 20 124/84 (97) 94 Nasal Cannula 2 09/07/20 15:40 Nasal Cannula 2 09/07/20 15:35 Nasal Cannula 2 09/07/20 15:30 18 121/82 (95) 93 Nasal Cannula 2 09/07/20 15:20 18 126/85 (99) 96 OxyMask 3 09/07/20 15:20 OxyMask 3 09/07/20 15:10 18 119/86 (97) 96 OxyMask 3 09/07/20 15:05 OxyMask 6 09/07/20 15:00 18 93/66 (75) 98 OxyMask 6 09/07/20 14:50 OxyMask 6 09/07/20 14:50 18 102/69 (80) 97 OxyMask 6 09/07/20 14:39 37 16 89/56 (67) 97 OxyMask 6 09/07/20 14:39 OxyMask 6 I & O 09/08/20 07:00 Intake Total 4150 ml Output Total 2525 ml Balance 1625 ml Capillary Refill : Less Than 3 Seconds General Appearance: No Apparent Distress HEENT: PERRL/EOMI Neck: Full Range of Motion Respiratory: Chest Non Tender, Normal Breath Sounds Cardiovascular: Regular Rate, Rhythm Gastrointestinal: soft, tenderness Extremity: Normal Capillary Refill Neurologic/Psychiatric: Alert, Oriented x3 Skin: Normal Color Lymphatic: No Adenopathy Results Lab Laboratory Tests 09/08/20 05:55: White Blood Count 11.3H, Red Blood Count 3.89L, Hemoglobin 11.4L, Hematocrit 35L , Mean Corpuscular Volume 91, Mean Corpuscular Hemoglobin 29, Mean Corpuscular Hemoglobin Concent 32, Red Cell Distribution Width 13.2, Platelet Count 208, Mean Platelet Volume 10.5, Sodium Level 136, Potassium Level 4.4, Chloride Level 104, Carbon Dioxide Level 23, Anion Gap 9, Blood Urea Nitrogen 10, Creatinine 0.91, Estimat Glomerular Filtration Rate > 60, BUN/Creatinine Ratio 11, Glucose Level 114H, Calcium Level 8.3L Assessment/Plan Assessment/Plan Assess & Plan/Chief Complaint s/p laparoscopic low anterior colorectal resection for complicated d iverticulitis. ambulate. remove NGT but keep NPO. increase FLIGHT CONTROL MANAGER. BEAU STORM MD Sep 08, 2020 11:40
[2020-09-08 12:00] VITALS: BP 133/86
[2020-09-08 16:00] VITALS: BP 125/88
[2020-09-08] MEDS ORDERED: METOCLOPRAMIDE INJ 10 MG/2 ML (REGLAN) IVP PRN (16:15)
[2020-09-08] MEDS ORDERED: ONDANSETRON 4 MG/2 ML (SDV) Z0FRAN IVP PRN (16:15)
[2020-09-08 20:14] VITALS: BP 142/80
[2020-09-08 23:10] VITALS: BP 124/86
[2020-09-09] MEDS: RT-ALBUTEROL SULF 2.5 MG/3 ML PRE-MIX VIAL INH SCH ×5 (01:27→18:39)
[2020-09-09 04:17] VITALS: BP 145/88
[2020-09-09] MEDS: 1/2 NS W/KCL 20 MEQ/L 1,000 ML IV SCH ×3 (06:16→19:41)
[2020-09-09 07:32] VITALS: BP 129/90
[2020-09-09] MEDS: ENOXAPARIN 30 MG/0.3 ML (LOVENOX) SYR SC SCH ×2 (09:08→20:33)
[2020-09-09] MEDS: PANTOPRAZOLE 40 MG (PROTONIX) VIAL IVP SCH (09:10)
[2020-09-09] MEDS: SENNA W/DOCUSATE (SENOKOT S) TABLET PO SCH (09:10)
[2020-09-09 11:25] VITALS: BP 129/82
--- NOTE | 2020-09-09 11:34 | Progress Note ---
Subjective Date Seen by a Provider: Sep 09, 2020 Time Seen by a Provider: 10:30 Subjective/Events-last exam doing ok. pain controlled. no fever/chills. minimal AUBREY drain output. Objective Exam Vital Signs Date Time Temp Pulse Resp B/P (MAP) Pulse Ox O2 Delivery O2 Flow Rate FiO2 09/09/20 11:25 37.2 103 16 129/82 (98) 92 Room Air 09/09/20 09:00 93 Room Air 2.00 09/09/20 07:37 18 09/09/20 07:32 36.6 103 18 129/90 (103) 93 Room Air 09/09/20 07:19 90 Room Air 09/09/20 04:17 36.5 90 20 145/88 (107) 94 Room Air 09/08/20 23:10 36.8 88 20 124/86 (99) 93 Room Air 09/08/20 20:14 37.9 98 18 142/80 (100) 92 Room Air 09/08/20 20:13 Room Air 09/08/20 19:56 18 09/08/20 19:10 94 Room Air 09/08/20 16:00 36.2 92 18 125/88 (100) 92 Room Air 09/08/20 14:32 91 Room Air 09/08/20 12:00 38.1 85 20 133/86 (102) 91 Nasal Cannula 2.00 I & O 09/09/20 07:00 Output Total 4420 ml Balance -4420 ml Capillary Refill : Less Than 3 Seconds General Appearance: No Apparent Distress HEENT: PERRL/EOMI Neck: Full Range of Motion Respiratory: Chest Non Tender, Normal Breath Sounds Cardiovascular: Regular Rate, Rhythm Gastrointestinal: soft, tenderness, other (incisions clean/dry) Extremity: Normal Capillary Refill Neurologic/Psychiatric: Alert, Oriented x3 Skin: Normal Color Lymphatic: No Adenopathy Results Lab Microbiology 09/07/20 MRSA Screen - Final, Complete MRSA not isolated Assessment/Plan Assessment/Plan Assess & Plan/Chief Complaint s/p laparoscopic low anterior colorectal resection for complicated diverticulitis. ambulate. remove NGT but keep NPO. await bowel fxn. BEAU STORM MD Sep 09, 2020 11:34
[2020-09-09 16:00] VITALS: BP 127/89
[2020-09-09] MEDS: fentaNYL INJECTION 1,000 MCG in NS (IVPB) 80 ML IV SCH (17:31)
[2020-09-09 19:33] VITALS: BP 137/88
[2020-09-10] VITALS (7 sets, daily range): BP systolic 124–142; BP diastolic 84–94
[2020-09-10] MEDS: 1/2 NS W/KCL 20 MEQ/L 1,000 ML IV SCH ×4 (02:55→18:37)
[2020-09-10] MEDS: ENOXAPARIN 30 MG/0.3 ML (LOVENOX) SYR SC SCH ×2 (10:05→20:56)
[2020-09-10] MEDS: PANTOPRAZOLE 40 MG (PROTONIX) VIAL IVP SCH (10:12)
[2020-09-10] MEDS: SENNA W/DOCUSATE (SENOKOT S) TABLET PO SCH (10:13)
--- NOTE | 2020-09-10 10:33 | Progress Note ---
Subjective Date Seen by a Provider: Sep 10, 2020 Time Seen by a Provider: 10:00 Subjective/Events-last exam doing well. had 2 BM's this am. ambulating well. pain controlled. Objective Exam Vital Signs Date Time Temp Pulse Resp B/P (MAP) Pulse Ox O2 Delivery O2 Flow Rate FiO2 09/10/20 07:43 36.4 80 18 138/91 (107) 94 Room Air 09/10/20 07:31 20 09/10/20 03:57 35.9 84 17 141/94 (110) 95 Room Air 09/10/20 00:00 35.6 92 16 142/90 (107) 94 Room Air 09/09/20 21:00 20 09/09/20 20:30 Room Air 09/09/20 19:33 37.6 101 18 137/88 (104) 93 Room Air 09/09/20 18:39 93 Room Air 09/09/20 16:00 36.8 98 16 127/89 (102) 93 Room Air 09/09/20 11:25 37.2 103 16 129/82 (98) 92 Room Air I & O 09/10/20 07:00 Intake Total 320 ml Output Total 885 ml Balance -565 ml Capillary Refill : Less Than 3 Seconds General Appearance: No Apparent Distress HEENT: PERRL/EOMI Neck: Full Range of Motion Respiratory: Chest Non Tender, Lungs Clear, Normal Breath Sounds Cardiovascular: Regular Rate, Rhythm Gastrointestinal: normal bowel sounds, soft, tenderness Extremity: Normal Capillary Refill Neurologic/Psychiatric: Alert, Oriented x3 Skin: Normal Color Lymphatic: No Adenopathy Results Lab Microbiology 09/07/20 MRSA Screen - Final, Complete MRSA not isolated Assessment/Plan Assessment/Plan Assess & Plan/Chief Complaint s/p laparoscopic low anterior colorectal resection for complicated diverticulitis. ambulate. has bowel fxn, will start clears and advance as tolerated. BEAU STORM MD Sep 10, 2020 10:33
[2020-09-10] MEDS ORDERED: HYDR-3817 PO (10:34)
--- NOTE | 2020-09-10 10:34 | Discharge Inst-Surgical ---
D/C Lap Instructions-EMETERIO New, Converted, or Re-Newed RX: RX on Chart Follow Up Appt in 2 weeks Activity as tolerated No driving for 24 hours No [address] while on pain medications Incentive Spirometry use every 2 hours while awake Regular Diet Symptoms to Report: Fever over 101 degree F, Nausea/Vomiting Infection Signs and Symptoms to report: Increased redness, Foul odor of wound, Increased drainage Bathing instructions: May shower Operative Area Clean/Dry; Keep incision clean/dry If any problems/questions: Contact your physician or go to Emergency Room BEAU STORM MD Sep 10, 2020 10:34
[2020-09-10] MEDS: HYDROcodone/APAP 7.5 MG/325 MG (LORTAB, LORCET PLUS) TABLET PO PRN ×2 (13:57→18:36)
[2020-09-10 15:10] LABS: BASOPHILS # (AUTO) 0.1 10^3/uL (0.0-0.1); BASOPHILS % (AUTO) 1 % (0-10); EOSINOPHILS # (AUTO) 0.3 10^3/uL (0.0-0.3); EOSINOPHILS % (AUTO) 4 % (0-10); HEMATOCRIT 34 % (40-54); HEMOGLOBIN 11.3 g/dL (13.3-17.7); LYMPHOCYTES # (AUTO) 1.3 10^3/uL (1.0-4.0); LYMPHOCYTES % (AUTO) 14 % (12-44); MEAN CORPUSCULAR HEMOGLOBIN 30 pg (25-34); MEAN CORPUSCULAR HGB CONC 33 g/dL (32-36); MEAN CORPUSCULAR VOLUME 90 fL (80-99); MEAN PLATELET VOLUME 10.8 fL (9.0-12.2); MONOCYTES # (AUTO) 0.9 10^3/uL (0.0-1.0); MONOCYTES % (AUTO) 9 % (0-12); NEUTROPHILS # (AUTO) 6.7 10^3/uL (1.8-7.8); NEUTROPHILS % (AUTO) 72 % (42-75); PLATELET COUNT 213 10^3/uL (130-400); WHITE BLOOD COUNT 9.2 10^3/uL (4.3-11.0)
[2020-09-10 15:26] LABS: ALBUMIN 3.7 GM/DL (3.2-4.5)
[2020-09-10 15:27] LABS: CHLORIDE 103 MMOL/L (98-107); POTASSIUM 3.7 MMOL/L (3.6-5.0); SODIUM 135 MMOL/L (135-145)
[2020-09-10 15:28] LABS: CALCIUM 8.9 MG/DL (8.5-10.1)
[2020-09-10 15:29] LABS: GLUCOSE 124 MG/DL (70-105); TOTAL PROTEIN 6.7 GM/DL (6.4-8.2)
[2020-09-10 15:30] LABS: CARBON DIOXIDE 23 MMOL/L (21-32)
[2020-09-10 15:31] LABS: BILIRUBIN,TOTAL 1.2 MG/DL (0.1-1.0)
[2020-09-10 15:32] LABS: ALKALINE PHOSPHATASE 72 U/L (40-136)
[2020-09-10 15:33] LABS: CREATININE SERUM 0.75 MG/DL (0.60-1.30); GFR ESTIMATED > 60
[2020-09-10 15:34] LABS: BUN/CREATININE RATIO 13
[2020-09-10 15:35] LABS: ALANINE AMINOTRANSFERASE 30 U/L (0-55)
[2020-09-11] VITALS: BP 128/86
[2020-09-11] MEDS: HYDROcodone/APAP 7.5 MG/325 MG (LORTAB, LORCET PLUS) TABLET PO PRN ×3 (00:03→14:34)
[2020-09-11 03:55] VITALS: BP 115/79
[2020-09-11] MEDS: 1/2 NS W/KCL 20 MEQ/L 1,000 ML IV SCH (08:04)
[2020-09-11] MEDS: ENOXAPARIN 30 MG/0.3 ML (LOVENOX) SYR SC SCH (08:33)
[2020-09-11] MEDS: PANTOPRAZOLE 40 MG (PROTONIX) VIAL IVP SCH (08:34)
[2020-09-11] MEDS: SENNA W/DOCUSATE (SENOKOT S) TABLET PO SCH (08:35)
[2020-09-11 08:49] VITALS: BP 158/73
[2020-09-11 12:00] VITALS: BP 127/97
[2020-09-11 16:38] VITALS: BP 133/92
[2020-09-11 18:15] VITALS: BP 133/92
== END 2020-09-11 18:15 | disposition home or self-care (01) | DRG 331 ==
LOC: 4TH 08:25 → SURG 08:27 → 4TH 15:40
PROVIDERS: ADMIT Surgery; ATTEND Surgery
PROC: 0T788DZ Dilation of Bilateral Ureters with Intraluminal Device, Via Natural or Artificial Opening Endoscopic (ICD-10-PCS; 2020-09-07)
PROC: 0DBP4ZZ Excision of Rectum, Percutaneous Endoscopic Approach (ICD-10-PCS; principal; 2020-09-07 10:03)
PROC: 0DBN4ZZ Excision of Sigmoid Colon, Percutaneous Endoscopic Approach (ICD-10-PCS; 2020-09-07 10:03)
DX: K57.32 Diverticulitis of large intestine without perforation or abscess without bleeding (principal); K64.1 Second degree hemorrhoids; I10 Essential (primary) hypertension; G47.00 Insomnia, unspecified; K21.9 Gastro-esophageal reflux disease without esophagitis; Z83.3 Family history of diabetes mellitus; Z82.49 Family history of ischemic heart disease and other diseases of the circulatory system
CPT/HCPCS: 36415; 71045; 74018; 76000; 80048; 80053; 85025; 85027; 86850; 86900; 86901; 87081; 94640; 94760